=== PATIENT | male | born 1950 | race Caucasian/White ===

== ENCOUNTER 2019-08-02 17:24 | Emergency (ER) | payer MEDICARE, SELFPAY ==
[2019-08-02 17:25] VITALS: BP 117/63; PULSE 87; RESP 14; TEMP 36.3; O2SAT 96; BMI 25.4
--- NOTE | 2019-08-02 17:38 | EKG12_ITS ---
Test Reason : Blood Pressure : / mmHG Vent. Rate : 071 BPM Atrial Rate : 071 BPM P-R Int : 160 ms QRS Dur : 104 ms QT Int : 406 ms P-R-T Axes : 059 118 028 degrees QTc Int : 441 ms Normal sinus rhythm Right axis deviation Incomplete right bundle branch block Possible Right ventricular hypertrophy ST & T wave abnormality, consider anterolateral ischemia Abnormal ECG Confirmed by DORINDA BARRETO, NILO ([id number]), material expeditor ROXANA TABARES ([id number]) on 08/09/2019 11:12:30 AM Referred By: OLENA Confirmed By:JESSE SETH MD
--- NOTE | 2019-08-02 17:40 | ED.DCSUM_ITS ---
History of Present Illness Chief Complaint: Diarrhea Informant: Patient Onset: Today Narrative: Patient reports cold symptoms for the past couple days. He has had nausea and diarrhea today. This afternoon he was sitting in his recliner. He got very hot and sweaty. He felt he needed to go the bathroom. He woke up lying on the dining room floor. He denies injury from fall. He states he had had a bowel movement and not made it to the bathroom in time. - Past Medical History (1) Hx of appendectomy Status: Chronic (2) History of inguinal hernia repair Status: Chronic Past Medical History - Allergies and Home Meds Allergies/Adverse Reactions: Allergies No Known Allergies Allergy (Verified 08/02/19 17:25) Primary Care Physician: [facility] Doctor,Out of [NON-STAFF] - Prior records reviewed: Yes Surgical History: appendectomy, herniorrhaphy Lives: Spouse/ Significant Other Smoking Status: Never smoker Review of Systems General: Reports: Chills. Denies: Fever Eyes: Denies: Visual changes - bilaterally ENT: Denies: Bilateral ear pain Cardiovascular: Denies: Chest pain, Palpitations Respiratory: Reports: Cough. Denies: Dyspnea Gastrointestinal: Reports: Nausea, Diarrhea. Denies: Abdominal pain, Vomiting Genitourinary: Denies: Dysuria Musculoskeletal: Denies: Swelling, Extremity Pain Skin: Denies: Rash Neurological: Denies: Headache Allergy: Denies: Uticaria Physical Exam Vital Signs/Narrative: Vital Signs Temp Pulse Resp BP Pulse Ox 08/02/19 17:25 97.3 F L 87 14 117/63 96 Inital Vital Signs reviewed: Yes General: Well nourished, Well developed Head: Normocephalic ENT: Moist mucous membranes Neck: Supple Cardiovascular: Regular rate, Regular rhythm Respiratory: No distress, CTA bilaterally Abdomen: Soft, Nontender, Normal bowel sounds Skin: Normal color Neurological: Alert, Oriented x3 Psychological: Normal affect Diagnostic/Tx/Re-eval Laboratory Results 08/02/19 08/02/19 08/02/19 17:56 17:56 19:35 WBC 12.6 H RBC 5.41 Hgb 15.6 Hct 47.2 MCV 87.2 MCH 28.8 MCHC 33.1 RDW Std Deviation 41.7 RDW Coeff of Donnie 13.2 Plt Count 213 MPV 9.9 Immature Gran % (Auto) 0.400 Neut % (Auto) 88.0 H Lymph % (Auto) 4.9 L [place] % (Auto) 5.6 Eos % (Auto) 0.8 Baso % (Auto) 0.3 Absolute Neuts (auto) 11.1 H Absolute Lymphs (auto) 0.62 L Nucleated RBC % 0 Sodium 140 Potassium 3.5 Chloride 109 H Carbon Dioxide 25.0 Anion Gap 6 BUN 25 H Creatinine 1.37 H Estim Creat Clear Calc 52.54 Est GFR (MDRD) Af Amer 66 Est GFR (MDRD) Non-Af 55 L BUN/Creatinine Ratio 18.2 Glucose 113 H Calcium 9.1 Urine Color Yellow Urine Clarity Clear Urine pH 5.0 Ur Specific [place] 1.020 Urine Protein Negative Urine Glucose (UA) Normal Urine Ketones 5 H Urine Occult Blood Negative Urine Nitrite Negative Urine Bilirubin Negative Urine Urobilinogen Normal Ur Leukocyte Esterase Negative Urine RBC 0 SEEN Urine WBC 0 SEEN Ur Squamous Epith Cells 0 SEEN Urine Bacteria 0 SEEN Urine Mucus RARE - EKG Initial EKG Interpretation: Sinus Rhythm - Sinus at 71 with incomplete right bundle branch block. No acute ST change. - Medical Decision Making Patient was given IV fluids and Zofran here. Test results discussed with patient and at bedside. At this time his vital signs are stable. He was rehydrated with fluids. I believe his syncopal episode was secondary to a vasovagal reaction from his description. Patient is encouraged to increase fluids. He will be given some Zofran for home as needed. If he continues to have diarrhea after 24 hours I advised him he could take some Imodium. He was given signs to monitor for and return. ED Disposition - Plan for ED Patient: Disposition: Home or Assisted Living Diagnosis: Vasovagal syncope, Gastroenteritis Instructions: GASTROENTERITIS, Viral (6y-Adult), SYNCOPE, Vasovagal Prescriptions: Ondansetron [Zofran Odt] 4 mg PO Q8H PRN PRN #10 tab PRN Reason: Nausea Transmission Status: Pending to [facility]/pharmacy #[id number] Referrals: [facility] Doctor,Out of [NON-STAFF] -
[2019-08-02 18:03] LABS: Absolute Lymphocyte Count 0.62 X10^3/uL (0.83-4.51); Absolute Neutrophil Count 11.1 X10^3/uL (2.0-7.7); Basophil# 0.04 X10^3/uL; Basophil% 0.3 % (0-1); Eosinophils% 0.8 % (0-5); Hematocrit 47.2 % (40-54); Hemoglobin 15.6 g/dL (13.0-16.5); Lymphocyte # 0.62 X10^3/ul (4.0); Lymphocyte % 4.9 % (19-41); Mean Corp Hgb Conc 33.1 g/dL (32-36); Mean Corpuscular Hgb 28.8 pg (27.0-32.0); Mean Corpuscular Volume 87.2 fL (80-94); Mean Platelet Vol. 9.9 fl (6.2-12.0); Monocyte# 0.71 X10^3/uL; Monocyte% 5.6 % (0-10); NRBC Flagged by Analyzer 0 % (0-5); Neutrophil # 11.05 X10^3/uL (2.7-7.7); Platelet Count 213 K/mm3 (150-450); RBC Distribution Width CV 13.2 % (11.6-14.6); RBC Distribution Width SD 41.7 fl (35.1-43.9); Red Blood Count 5.41 M/mm3 (4.6-6.2); White Blood Count 12.6 K/mm3 (4.4-11.0)
[2019-08-02 18:15] LABS: Anion Gap 6 (5-15); BUN 25 mg/dL (7-18); BUN/Creat Ratio 18.2 RATIO (10-20); Calcium,Total 9.1 mg/dL (8.5-10.1); Chloride 109 mmol/L (98-107); Creatinine, Serum 1.37 mg/dL (0.70-1.30); EST Glomerular Filtration Rate 55 mL/min (>60); Est Glom Filt Rate - Afr Amer 66 mL/min (>60); Estimated Creatinine Clearance 52.54 ml/min; Glucose 113 mg/dL (74-106); Potassium 3.5 mmol/L (3.5-5.1); Sodium Level 140 mmol/L (136-145)
[2019-08-02] MEDS: 0.9% Normal Saline 1,000 ML 1000 ML IV (18:34)
[2019-08-02 18:36] VITALS: BP 125/62; PULSE 66; RESP 12; O2SAT 97
--- NOTE | 2019-08-02 18:40 | ED.RN ---
NO OLD EKGS IN MUSE
[2019-08-02] MEDS: 0.9% Normal Saline 1,000 ML 150 ML IV (19:03)
--- NOTE | 2019-08-02 19:25 | ED.RN ---
Called lab regarding urine sample, sample is not in lab. Nish and myself called to verify.
[2019-08-02 19:40] LABS: Bacteria 0 SEEN /hpf (None Seen); Red Blood Cells-Urine 0 SEEN /hpf (0-5); Squamous Epithelial Cells - UA 0 SEEN /hpf (0-5); White Blood Cells 0 SEEN /hpf (0-5)
[2019-08-02 19:46] LABS: Color, Urine Yellow (Yellow); Glucose, Dipstick Normal (Normal); Ketone-Dipstick 5 mg/dl (Negative); Leukocyte Esterase-Dipstick Negative /ul (Negative); Nitrite-Dipstick Negative (Negative); Occult Blood-Urine Negative /ul (Negative); Protein-Dipstick Negative (Negative); Urine Bilirubin Dipstick Negative (Negative); Urine Clarity Clear (Clear); Urine Urobilinogen Normal (Normal)
[2019-08-02 20:05] VITALS: BP 125/54; PULSE 71; RESP 17; O2SAT 96
[2019-08-02 20:08] LABS: Mucous, Urine RARE /hpf (<or=2+)
[2019-08-02 20:43] VITALS: BP 125/54; PULSE 71; RESP 17; O2SAT 96
== END 2019-08-02 20:44 | disposition home or self-care (01) ==
PROVIDERS: Emergency Provider Emergency Medicine; PCP Family Medicine
DX: K52.9 Noninfective gastroenteritis and colitis, unspecified (principal); R55 Syncope and collapse
CPT/HCPCS: 80048; 81001; 85025; 93005; 96360; 96361; 99284; J7030; A4216

== ENCOUNTER 2019-10-03 22:15 | Emergency (ER) | payer MEDICARE, SELFPAY ==
[2019-10-03 22:16] VITALS: PULSE 58; RESP 16; TEMP 36.8; O2SAT 96; BMI 25.0
[2019-10-03 22:25] VITALS: BP 164/80
--- NOTE | 2019-10-03 22:34 | CT_ITS ---
STUDY: CT ABDOMEN AND PELVIS WITHOUT CONTRAST REASON FOR EXAM: Male, 69 years old. LT FLANK AND GROIN PAIN/HX OF [place] RADIATION DOSAGE (If Supplied By Facility): CTDIvol = ( 6.79 ) mGy, DLP = ( 349.45 ) mGycm TECHNIQUE: Transaxial images were obtained from the dome of the diaphragm to the symphysis pubis without oral contrast, and without intravenous contrast. Sagittal and coronal images were reconstructed. Individualized dose optimization techniques were used for this CT. COMPARISON: None. FINDINGS: The visualized lung bases are unremarkable. The visualized portions of the heart are within normal limits. Normal liver. Normal gallbladder and extrahepatic biliary system. Normal spleen. Normal pancreas. Normal bilateral adrenal glands. Normal right kidney. 4 mm left ureteropelvic junction calculus with mild associated hydronephrosis. Normal visualized stomach. Anechoic artifact seen in the proximal duodenum. The remainder of the small bowel demonstrates no evidence for obstruction or other acute process. Normal colon. There is non-visualization of the appendix. Normal abdominal aorta. Normal inferior vena cava. Normal retroperitoneum. Normal urinary bladder. There is enlargement of the prostate gland. Normal abdominal wall. Normal osseous structures. CT/Abdomen/Pelvis without Cont IMPRESSION: 4 mm left ureteropelvic junction calculus with mild associated obstructive uropathy. Anechoic linear artifact seen in the proximal duodenum. Correlate with any intervention history. Electronically Signed: Massimo Cheney, at 23:13 EDT Tel , Service support ,
--- NOTE | 2019-10-03 22:35 | ED.VIS.GEN ---
History of Present Illness Chief Complaint: Back Narrative: 69-year-old male presents with sudden onset left flank pain that radiates anteriorly into his groin. He has nauseated but not vomiting. No hematuria or urinary hesitancy. No trauma. It started suddenly 2 hours ago. It is colicky in nature and severity. It feels similar to a kidney stone he had about 30 years ago. He denies any recent trauma. Severity is moderate. Capacity - Capacity Assessment Tool Can the patient make a choice & communicate that choice?: Yes Past Medical History - Allergies and Home Meds Allergies/Adverse Reactions: Allergies No Known Allergies Allergy (Verified 10/03/19 22:16) Primary Care Physician: Jaya Sue MD [Primary Care Provider] - Prior records reviewed: Yes Surgical History: appendectomy, herniorrhaphy Smoking Status: Never smoker Alcohol: None Review of Systems General: Denies: Chills, Fever, Sweats Eyes: Denies: Visual changes - bilaterally, Diplopia ENT: Denies: Rhinorrhea, Sore throat Cardiovascular: Denies: Chest pain, Palpitations Respiratory: Denies: Dyspnea, Cough, Dyspnea on exertion Gastrointestinal: Denies: Abdominal pain, Nausea, Vomiting, Diarrhea, Melena, Hematochezia Genitourinary: Reports: - - Flank pain. Denies: Dysuria, Hematuria, Frequency Musculoskeletal: Reports: Back pain. Denies: Extremity Pain Skin: Denies: Rash, Wounds Neurological: Denies: Headache, Weakness, Numbness Physical Exam Vital Signs/Narrative: Vital Signs Temp Pulse Resp BP Pulse Ox 10/03/19 22:25 164/80 H 10/03/19 22:16 98.2 F 58 L 16 96 General: Well nourished, Well developed, No Acute Distress Head: Normocephalic, Atraumatic Eyes: Perrl, EOMI ENT: Moist mucous membranes, No rhinorrhea Neck: Supple, Nontender Cardiovascular: Regular rate, Regular rhythm, No murmurs Respiratory: No distress, CTA bilaterally, Chest nontender Abdomen: Soft, Nondistended, Normal bowel sounds, Tender - left flank Back: Nontender, Normal Inspection Extremities: Nontender, No edema Skin: Normal color, No rash Neurological: Alert, Oriented x3, Cranial nerves II-XII grossly intact, Normal Strength, Normal Sensation Psychological: Normal affect, Normal Mood Diagnostic/Tx/Re-eval - Medical Decision Making CT scan reveals a 4 mm proximal left ureteral stone with hydronephrosis. Creatinine is 1.38 but other labs are within normal limits. No leukocytosis. He was given IV fluids, Toradol, Zofran. Pain is resolved on reexamination. He looks well. No evidence of an acute surgical abdomen. I told him about the elevated creatinine and the importance of close follow-up. He is comfortable going home at this time and following up with urology. He will return here if worse. ED Disposition - Plan for ED Patient: Disposition: Home or Assisted Living Diagnosis: Ureteral obstruction, left Instructions: ED Renal Stone w Colic Prescriptions: Tamsulosin HCl [Flomax] 0.4 mg PO DAILY #7 capsule Oxycodone HCl/Acetaminophen [Percocet 5/325] 1 tablet PO Q6H PRN PRN 3 Days #12 tablet PRN Reason: Pain Referrals: Kenny Mcelroy MD [STAFF PHYSICIAN] -
[2019-10-03 22:40] LABS: Absolute Lymphocyte Count 2.17 X10^3/uL (0.83-4.51); Absolute Neutrophil Count 2.8 X10^3/uL (2.0-7.7); Basophil# 0.03 X10^3/uL; Basophil% 0.5 % (0-1); Eosinophil# 0.15 X10^3/uL; Eosinophils% 2.5 % (0-5); Hematocrit 41.5 % (40-54); Hemoglobin 14.1 g/dL (13.0-16.5); Lymphocyte # 2.17 X10^3/ul (4.0); Mean Corpuscular Hgb 29.3 pg (27.0-32.0); Mean Corpuscular Volume 86.3 fL (80-94); Mean Platelet Vol. 10.3 fl (6.2-12.0); Monocyte# 0.85 X10^3/uL; Monocyte% 14.1 % (0-10); NRBC Flagged by Analyzer 0 % (0-5); Neutrophil # 2.82 X10^3/uL (2.7-7.7); Neutrophil % 46.7 % (47-70); Platelet Count 180 K/mm3 (150-450); RBC Distribution Width CV 13.2 % (11.6-14.6); RBC Distribution Width SD 41.2 fl (35.1-43.9); Red Blood Count 4.81 M/mm3 (4.6-6.2)
[2019-10-03] MEDS: 0.9% Normal Saline 1,000 ML 999 ML IV (22:40)
[2019-10-03 23:04] LABS: AST(SGOT) 14 U/L (15-37); Alanine Aminotransfer ALT/SGPT 21 U/L (16-61); Albumin, Serum 3.7 g/dL (3.2-5.0); Alkaline Phosphatase 68 U/L (45-117); Anion Gap 7 (5-15); BUN 25 mg/dL (7-18); BUN/Creat Ratio 18.1 RATIO (10-20); Calcium,Total 9.1 mg/dL (8.5-10.1); Chloride 110 mmol/L (98-107); Creatinine, Serum 1.38 mg/dL (0.70-1.30); EST Glomerular Filtration Rate 54 mL/min (>60); Est Glom Filt Rate - Afr Amer 66 mL/min (>60); Estimated Creatinine Clearance 52.16 ml/min; Globulin 2.9 g/dL (2.2-4.2); Glucose 135 mg/dL (74-106); Lipase 91 U/L (73-393); Potassium 3.5 mmol/L (3.5-5.1); Protein, Total 6.6 g/dL (6.4-8.2); Sodium Level 143 mmol/L (136-145)
[2019-10-03] MEDS: Ondansetron 4 MG/2 ML Vial IV (23:17)
[2019-10-03] MEDS: Ketorolac 15 MG/ML Vial 30 MG IV (23:17)
[2019-10-03 23:24] LABS: Bacteria 0 SEEN /hpf (None Seen); Mucous, Urine 0 SEEN /hpf (<or=2+); Squamous Epithelial Cells - UA 0 SEEN /hpf (0-5)
[2019-10-03 23:26] LABS: Glucose, Dipstick Normal (Normal); Ketone-Dipstick 5 mg/dl (Negative); Leukocyte Esterase-Dipstick 25 /ul (Negative); Nitrite-Dipstick Negative (Negative); Occult Blood-Urine 250 /ul (Negative); Protein-Dipstick 30 mg/dl (Negative); Specific Gravity, Urine 1.025 (1.002-1.030); Urine Bilirubin Dipstick Negative (Negative); Urine Urobilinogen Normal (Normal)
[2019-10-03 23:35] LABS: Color, Urine Yellow (Yellow); Urine Clarity Cloudy (Clear)
[2019-10-03 23:36] LABS: Red Blood Cells-Urine 50-100 SEEN /hpf (0-5); White Blood Cells 10-25 SEEN /hpf (0-5)
[2019-10-03 23:49] VITALS: BP 136/63; PULSE 67; RESP 15; O2SAT 95
== END 2019-10-04 00:33 | disposition home or self-care (01) ==
PROVIDERS: Emergency Provider Emergency Medicine; PCP Family Medicine
DX: N13.1 Hydronephrosis with ureteral stricture, not elsewhere classified (principal); Z87.442 Personal history of urinary calculi
CPT/HCPCS: 74176; 80048; 80076; 81001; 83690; 85025; 96361; 96374; 96375; 99283; J7030; A4216; J2405

== ENCOUNTER 2019-10-07 13:40 | Observation (INO) | payer MEDICARE, SELFPAY ==
[2019-10-07 13:42] VITALS: BP 129/87; PULSE 54; RESP 16; TEMP 36.7; O2SAT 98; BMI 24.9
[2019-10-07] MEDS: 0.9% Normal Saline 1,000 ML 999 ML IV (14:14)
[2019-10-07] MEDS: Morphine 4 MG/ML Syringe IV ×3 (14:16→20:33)
[2019-10-07] MEDS: Ondansetron 4 MG/2 ML Vial IV (14:16)
[2019-10-07 14:17] LABS: Absolute Lymphocyte Count 1.94 X10^3/uL (0.83-4.51); Absolute Neutrophil Count 2.9 X10^3/uL (2.0-7.7); Basophil# 0.02 X10^3/uL; Basophil% 0.3 % (0-1); Eosinophil# 0.12 X10^3/uL; Eosinophils% 2.1 % (0-5); Hematocrit 45.1 % (40-54); Hemoglobin 14.8 g/dL (13.0-16.5); Lymphocyte # 1.94 X10^3/ul (4.0); Lymphocyte % 33.9 % (19-41); Mean Corp Hgb Conc 32.8 g/dL (32-36); Mean Corpuscular Hgb 28.8 pg (27.0-32.0); Mean Corpuscular Volume 87.9 fL (80-94); Mean Platelet Vol. 10.4 fl (6.2-12.0); Monocyte# 0.77 X10^3/uL; Monocyte% 13.4 % (0-10); NRBC Flagged by Analyzer 0 % (0-5); Neutrophil # 2.86 X10^3/uL (2.7-7.7); Platelet Count 213 K/mm3 (150-450); RBC Distribution Width SD 41.6 fl (35.1-43.9); Red Blood Count 5.13 M/mm3 (4.6-6.2); White Blood Count 5.7 K/mm3 (4.4-11.0)
[2019-10-07 14:30] LABS: Anion Gap 6 (5-15); BUN 22 mg/dL (7-18); BUN/Creat Ratio 16.7 RATIO (10-20); Calcium,Total 9.1 mg/dL (8.5-10.1); Chloride 108 mmol/L (98-107); Creatinine, Serum 1.32 mg/dL (0.70-1.30); EST Glomerular Filtration Rate 57 mL/min (>60); Est Glom Filt Rate - Afr Amer 69 mL/min (>60); Estimated Creatinine Clearance 54.53 ml/min; Glucose 139 mg/dL (74-106); Potassium 3.5 mmol/L (3.5-5.1); Sodium Level 141 mmol/L (136-145)
--- NOTE | 2019-10-07 15:36 | ED.VIS.GEN ---
History of Present Illness Chief Complaint: Flank Pain Informant: Patient Onset: Today Context: Sudden Onset Timing: Intermittent Narrative: Patient is a 69-year-old male who was recently diagnosed with a left-sided 4 mm kidney stone presenting with recurrent left flank pain. Patient describes the pain as sharp and constant for the past hour. It radiates into his left lower quadrant. Patient states he felt better when he was discharged home on Friday. On Friday he felt fine and on Friday he had a small 10-minute episode of pain however he took his Percocet and that helped. On Friday he was feeling fine again however today his pain is significantly worse than ever was before. He did take 1 Percocet prior to arrival but did not have any relief. He has associated nausea and vomiting which is a new symptom. He did not follow-up with urology because he thought that he needed to wait until he passed the stone to call them. Patient denies any other medical history. He denies any difficulty urinating. He states he is otherwise been feeling well. He denies any other complaints at this time. Past Medical History - Allergies and Home Meds Allergies/Adverse Reactions: Allergies No Known Allergies Allergy (Verified 10/07/19 13:41) Primary Care Physician: Jaya Sue MD [Primary Care Provider] - Past Medical History: None Surgical History: appendectomy, herniorrhaphy Smoking Status: Former smoker Review of Systems General: Denies: Chills, Fever, Sweats Eyes: Denies: Visual changes - bilaterally, Diplopia ENT: Denies: Rhinorrhea, Sore throat Cardiovascular: Denies: Chest pain, Palpitations Respiratory: Denies: Dyspnea, Cough, Dyspnea on exertion Gastrointestinal: Reports: Abdominal pain - Left flank pain, Nausea, Vomiting. Denies: Diarrhea, Melena, Hematochezia Genitourinary: Denies: Dysuria, Hematuria, Frequency Musculoskeletal: Denies: Back pain, Extremity Pain Skin: Denies: Rash, Wounds Neurological: Denies: Headache, Weakness, Numbness Physical Exam Vital Signs/Narrative: Vital Signs Temp Pulse Resp BP Pulse Ox 10/07/19 13:42 98.1 F 54 L 16 129/87 H 98 Inital Vital Signs reviewed: Yes General: Well nourished, Well developed, Acute Distress - Secondary to pain Head: Normocephalic, Atraumatic Eyes: Perrl, EOMI ENT: Moist mucous membranes, No rhinorrhea Neck: Supple, Nontender Cardiovascular: Regular rate, Regular rhythm, No murmurs Respiratory: No distress, CTA bilaterally, Chest nontender Abdomen: Soft, Nontender, Nondistended, Normal bowel sounds, Guarding - Voluntary . Negative for: Rebound tenderness Back: Nontender, Normal Inspection. Negative for: CVA tenderness, Spinal tenderness Extremities: Nontender, No edema Skin: Normal color, No rash Neurological: Alert, Oriented x3, Cranial nerves II-XII grossly intact, Normal Strength, Normal Sensation Psychological: Normal affect, Normal Mood Diagnostic/Tx/Re-eval - Medical Decision Making Patient was evaluated for recurrent left-sided flank pain. He was diagnosed with a 4 mm stone 4 days ago. It is initially treated with 4 of morphine, 4 of Zofran and IV fluids. Patient does not have adequate pain control and is given another 4 mg of morphine. On reevaluation he is more comfortable. As patient did have an elevated creatinine with unknown baseline I did recheck CBC, BMP and urinalysis. Patient's creatinine has not changed and he is not have a leukocytosis. We will obtain a KUB for visualization of the stone. I am still waiting on the urinalysis to make sure he does not have a contaminant infection. Patient is signed out to oncoming physician, Dr. Ochoa. Should patient receive adequate pain control and his work-up continues to be normal believe he can follow-up with follow-up with Dr. Mcelroy. Should he have intractable pain or signs of infection, patient will require admission. ED Disposition - Plan for ED Patient: Diagnosis: Renal colic on left side Referrals: Jaya Sue MD [Primary Care Provider] -
[2019-10-07] MEDS: Ketorolac 15 MG/ML Vial IV (16:30)
[2019-10-07] MEDS: HYDROmorphone 0.5 MG/0.5 ML SYRINGE IV (16:30)
[2019-10-07 16:32] VITALS: BP 175/68; PULSE 63; RESP 16; O2SAT 95
--- NOTE | 2019-10-07 16:55 | RAD_ITS ---
STUDY: X-RAY - ABDOMEN/PELVIS REASON FOR EXAM: Male, 69 years old. Pt arrives to ed with left flank pain. Recent diagnosis of left side stone with colic. Has not followed up with Urology. TECHNIQUE: Two AP supine views of the abdomen and pelvis. COMPARISON: Noncontrast CT abdomen and pelvis October 03, 2019. FINDINGS: Non-visualized lung bases. There is an unremarkable bowel gas pattern. There is no demonstrated free abdominal air. The visualized liver, spleen and kidneys are grossly normal in size and morphology. There are calcified phleboliths in the pelvis. Number of metal fixation coils consistent with prior herniorrhaphy project over the left lower quadrant/inguinal region. There are stable multilevel degenerative changes and 15 degree levoscoliosis of the visualized lumbar spine. RAD/Abdomen Single View IMPRESSION: 1. Nonspecific bowel gas pattern. 2. The punctate bilateral renal stones seen on previous CT are not evident on this exam. 3. Prior left lower quadrant/inguinal herniorrhaphy. 4. Stable degenerative changes of the spine. Electronically Signed: Luke Yadav MD at 17:22 EDT , Service support ,
[2019-10-07 17:06] LABS: Bacteria 0 SEEN /hpf (None Seen)
[2019-10-07 17:12] LABS: Color, Urine Yellow (Yellow); Glucose, Dipstick Normal (Normal); Ketone-Dipstick 5 mg/dl (Negative); Leukocyte Esterase-Dipstick 25 /ul (Negative); Nitrite-Dipstick Negative (Negative); Occult Blood-Urine 250 /ul (Negative); Protein-Dipstick 30 mg/dl (Negative); Specific Gravity, Urine 1.025 (1.002-1.030); Urine Bilirubin Dipstick Negative (Negative); Urine Clarity Sl. Cloudy (Clear); Urine Urobilinogen Normal (Normal)
[2019-10-07 17:39] LABS: Hyaline Cast 0-5 SEEN /lpf (0-5); Mucous, Urine 3+ /hpf (<or=2+)
[2019-10-07 17:40] LABS: Red Blood Cells-Urine 50-100 SEEN /hpf (0-5)
[2019-10-07 17:41] LABS: White Blood Cells 0-5 SEEN /hpf (0-5)
[2019-10-07 17:42] LABS: Calcium Oxalate Crystals Ur RARE /hpf (<or=2+); Squamous Epithelial Cells - UA 0-5 SEEN /hpf (0-5)
--- NOTE | 2019-10-07 18:25 | ED.VISSUMM ---
- ER Visit Summary Date of Service: 10/07/19 Chief Complaint: Addendum to initial dictation by Dr. Ferrara [] History of Present Illness: The patient is a 69 M [presented with left flank pain related to a 4 mm kidney stone diagnosed 4 days ago. Patient was medicated with morphine initially and pain did not improve he was then given Toradol and Dilaudid which did help his pain. I was asked to follow-up on his urinalysis and KUB. The KUB did not show any evidence of a stone. The urinalysis showed microscopic blood but no signs of infection. Patient is resting relatively comfortable at this time.] Physical Examination: [] Test Results: [] Emergency Department Course and Treatment: [] Treatment Plan: [After discussing with patient results he is asking that we admit him as he is concerned about going home and having the same pain again. I discussed case with urology and they be happy to see him in consultation however they asked that medicine admit for pain control] Disposition: Admit [] Impression: [Kidney stone with colic Intractable pain] This note was generated with [employer] dictation software. It may contain incorrect words, spelling, and punctuation that were not noted in review of the chart prior to signing ED Disposition - Plan for ED Patient: Diagnosis: Renal colic on left side Referrals: Jaya Sue MD [Primary Care Provider] -
--- NOTE | 2019-10-07 18:28 | HP.PCM_ITS ---
History of Present Illness Date of Admission: 10/07/19 Chief Complaint: abdominal pain The patient is a 69 year old M with no significant past medical history was admitted through the ED on 10/07/2019 with a complaint of left-sided abdominal pain. Patient was seen in the ED about 4 days prior to this admission after he complained of similar symptoms and imaging done showed evidence of a 4 mm kidney stone in the ureter. He was discharged home with pain meds again today. He therefore decided to come into the hospital because he could not tolerate the pain. He last had kidney stones about 30 years ago. He denied any fever or chills, but admitted to nausea and vomiting. He denied any burning with urin ation. Review of symptoms otherwise negative. On admission vitals were significant for blood pressure of 175/68, with temperature of 98.1 and pulse rate of 63 and respiratory of 16. Pulse ox was 95% on room air. Chemistry showed creatinine of 1.32 with potassium of 3.5. CBC was unremarkable. KUB showed nonspecific bowel gas pattern with punctate bilateral renal stones seen on previous CT not been evident on this exam) left lower quadrant inguinal herniorrhaphy. He has been admitted to be managed for abdominal pain due to nephrolithiasis. [] Past Medical History Past Medical History (Chronic Problems): Chronic Problems Hx of appendectomy (Chronic) History of inguinal hernia repair (Chronic) Allergies No Known Allergies Allergy (Verified 10/07/19 13:41) Home Medications: Ambulatory Orders Medication Instructions Recorded Ondansetron [Zofran Odt] 4 mg PO Q8H PRN PRN #10 tab 08/02/19 Tamsulosin HCl [Flomax] 0.4 mg PO DAILY #7 cap 10/03/19 Surgical History: appendectomy, herniorrhaphy Lives: Spouse/ Significant Other Smoking Status: Former smoker Alcohol: None Drugs: None - *Family History Maternal History Items: No pertinent history Paternal History Items: No pertinent history Review of Systems Constitutional: Denies: Chills, Fever, Malaise, Weakness, Weight Change Eyes: Denies: Blurred vision HEENT: Denies: Head Aches, Sinus Congestion, Sinus Drainage Cardiovascular: Denies: Chest Pain, Palpitations Respiratory: Denies: Cough, Shortness of Breath, Shortness of breath at rest, Shortness of breath upon exertion, Sputum production Gastrointestinal: Reports: Abdominal Pain, Nausea, Vomiting Genitourinary: Denies: Dysuria, Frequency, Hematuria, Hesitancy, Urgency Musculoskeletal: Denies: Joint Pain, Joint Tenderness Skin: Denies: Rash, Wounds Neurological: Denies: Numbness, Tingling, Focal weakness Psychiatric: Denies: Anxiety, Depression, Homicidal Ideations, Suicidal Ideations Hematologic/ Lymphatic: Denies: Easy Bruising, Easy Bleeding VTE Information - Inpt Only VTE Present on Admission: No VTE Pharm Prophylaxis ordered?: Yes Patient Problems: Active and Suspected Problems Renal colic on left side (Acute) - Physical Exam Vitals/I&O's: Vital Signs Temp Pulse Resp BP Pulse Ox 98.1 F 63 16 175/68 H 95 10/07/19 13:42 10/07/19 16:32 10/07/19 16:32 10/07/19 16:32 10/07/19 16:32 Oxygen Delivery Method Room Air Weight: 173 lb 11.588 oz Body Mass Index (BMI) 24.9 Intake and Output for Last 24 Hours 10/05/19 10/06/19 10/07/19 23:59 23:59 23:59 Intake Total 1000 / 1000 Balance 1000 / 1000 General: Alert, Oriented x3, Cooperative, No apparent distress HEENT: Atraumatic, PERRLA, EOMI, Normocephalic Oral: Moist Mucosa Neck: Supple, No JVD, Negative Carotid Bruits Lungs: Clear to auscultation, Normal air movement, No rhonchi, No wheeze, No rales Cardiovascular: Regular rate, Regular Rhythm, Normal S1, Normal S2, No murmurs Abdomen: Bowel Sounds Present, Soft, Non Tender, Non-Distended, No Hepato- splenomegaly Extremities: No clubbing, No cyanosis, No edema, Capillary Refill Less than 3 Seconds Skin: No rashes, No breakdown Musculoskeletal: No Tenderness to Palpation of Joints or Extremities Lymphatic: No Cervical, Supraclavicular, or Inguinal Adenopathy Neurological: Cranial nerves II-XII grossly intact, Neuro grossly intact, Motor Exam 5/5 strength throughout Psych/Mental Status: Normal Affect, Appropriate, Alert and oriented to time, place, person, mood and affect Laboratory Results 10/07/19 14:06: WBC 5.7, RBC 5.13, Hgb 14.8, Hct 45.1, MCV 87.9, MCH 28.8, MCHC 32.8, RDW Std Deviation 41.6, RDW Coeff of Donnie 13.0, Plt Count 213, MPV 10.4, Immature Gran % (Auto) 0.300, Neut % (Auto) 50.0, Lymph % (Auto) 33.9, [place] % (Auto) 13.4 H, Eos % (Auto) 2.1, Baso % (Auto) 0.3, Absolute Neuts (auto) 2.9, Absolute Lymphs (auto) 1.94, Nucleated RBC % 0 10/07/19 14:06: Sodium 141, Potassium 3.5, Chloride 108 H, Carbon Dioxide 27.0, Anion Gap 6, BUN 22 H, Creatinine 1.32 H, Estim Creat Clear Calc 54.53, Est GFR (MDRD) Af Amer 69, Est GFR (MDRD) Non-Af 57 L, BUN/Creatinine Ratio 16.7, Glucose 139 H, Calcium 9.1 10/07/19 17:00: Urine Color Yellow, Urine Clarity Sl. Cloudy, Urine pH 6.0, Ur Specific [place] 1.025, Urine Protein 30 H, Urine Glucose (UA) Normal, Urine Ketones 5 H, Urine Occult Blood 250 H, Urine Nitrite Negative, Urine Bilirubin Negative, Urine Urobilinogen Normal, Ur Leukocyte Esterase 25 H, Urine RBC 50- 100 SEEN, Urine WBC 0-5 SEEN, Ur Squamous Epith Cells 0-5 SEEN, Calcium Oxalate Crystal RARE, Urine Bacteria 0 SEEN, Hyaline Casts 0-5 SEEN, Urine Mucus 3+ Diagnostic Data KUB X-Ray 10/07/19 16:55 IMPRESSION: 1. Nonspecific bowel gas pattern. 2. The punctate bilateral renal stones seen on previous CT are not evident on this exam. 3. Prior left lower quadrant/inguinal herniorrhaphy. 4. Stable degenerative changes of the spine. Electronically Signed: Luke Yadav MD at 17:22 EDT , Service support , Assessment/Plan All Active Problems Renal colic on left side (Acute) 69 y/o admitted with a complaint of left sided abdominal pain. 1. NEphrolithiasis * , Pain had improved with pain meds. * AB done showed that the bilateral renal stones seen on previous CT were not evident on the x-ray. Stones therefore may have likely passed * Patient however not comfortable going home because he is concerned about the pain. * Admit to MedSurg. * Hydrate with IV fluid normal saline at 150 cc/h. * IV Toradol and IV morphine for pain control as well as p.o. Tylenol. * P.o. Flomax. * If pain is persistent, will consult urology tomorrow. * 2. CKD stage III: Creatinine is 1.32 which is around his baseline of 1.37 from July 2018. Labile. Will monitor. 3. Elevated blood pressure: * No known diagnosis of hypertension. * Blood pressure was in the 170s systolic on admission and this likely due to pain. * IV hydralazine PRN. * If blood pressure remains elevated, will consider starting oral blood pressure medications. * * DVT prophylaxis; SCDs Code status: Full code * Patient counseled extensively about different types of CODE STATUS including full code, DNR CCA and DNR CCA. Patient elects to be full code. Total [id number] time 16 minutes. OBSV E&M: 46240 Initial observation care L2 Procedures: 56370 Advncd Care Plan 30 Min
[2019-10-07 18:59] VITALS: BP 175/68; PULSE 63; RESP 17; TEMP 36.7
[2019-10-07 19:34] VITALS: BMI 24.3
[2019-10-07 19:40] VITALS: BP 151/64; PULSE 63; RESP 16; TEMP 36.8; O2SAT 98
[2019-10-07 19:54] VITALS: BMI 24.4
[2019-10-07] MEDS: 0.9% Normal Saline 1,000 ML 150 ML IV (20:05)
[2019-10-07] MEDS: 0.9% Saline Lock 10 ML Syringe IV (20:33)
[2019-10-07] MEDS: oxyCODONE 5 MG Tablet PO (22:01)
[2019-10-08] MEDS: 0.9% Saline Lock 10 ML Syringe IV (01:10)
[2019-10-08] MEDS: Ketorolac 30 MG/ML Syringe IV (01:10)
[2019-10-08 01:16] VITALS: BP 172/79; PULSE 60; RESP 18; TEMP 37.1; O2SAT 98
[2019-10-08 02:00] VITALS: BP 147/77; PULSE 62; RESP 16
[2019-10-08] MEDS: 0.9% Normal Saline 1,000 ML 150 ML IV ×2 (02:54→10:17)
--- NOTE | 2019-10-08 04:42 | NURSING ---
report given to SOPHIA Aviles
--- NOTE | 2019-10-08 07:25 | CON.PCM_ITS ---
Problem List (1) Renal colic on left side Status: Acute Reason for Consult Date of Consultation: 10/07/19 Reason for Consultation: Left proximal ureteral calculi History of Present Illness: The patient is a 69 year old male who presented to the emergency room with left- sided severe flank pain, the emergency room and call me for consult call me reviewed the CAT scan and she had he has a stone 4 mm in the proximal left ureter, he was admitted for pain control because he was concerned that the pain may came back. We will see if he can pass the stone spontaneously. I reviewed the KUB look like the stone to move down to the distal ureter near the bladder. Past Medical History Past Medical History (Chronic Problems): Chronic Problems Hx of appendectomy (Chronic) History of inguinal hernia repair (Chronic) Allergies No Known Allergies Allergy (Verified 10/07/19 13:41) Home Medications: Ambulatory Orders Medication Instructions Recorded Ondansetron [Zofran Odt] 4 mg PO Q8H PRN PRN #10 tab 08/02/19 Tamsulosin HCl [Flomax] 0.4 mg PO DAILY #7 cap 10/03/19 Oxycodone HCl/Acetaminophen 1 tab PO Q6H PRN PRN 10/07/19 [Endocet 5-325 Tablet] Surgical History: appendectomy, herniorrhaphy Lives: Spouse/ Significant Other Smoking Status: Former smoker Tobacco Use: Cigarettes Alcohol: None Drugs: None - *Family History Maternal History Items: No pertinent history Paternal History Items: No pertinent history Review of Systems Constitutional: Denies: Chills, Fever, Weight Change HEENT: Denies: Head Aches, Sinus Congestion, Sinus Drainage Cardiovascular: Denies: Chest Pain, Palpitations Respiratory: Denies: Cough, Shortness of breath at rest, Sputum production Gastrointestinal: Denies: Abdominal Pain, Nausea, Vomiting Genitourinary: Denies: Dysuria Musculoskeletal: Denies: Joint Pain, Joint Tenderness Skin: Denies: Rash, Wounds Neurological: Denies: Numbness, Tingling, Focal weakness Psychiatric: Denies: Anxiety, Depression, Homicidal Ideations, Suicidal Ideations Hematologic/ Lymphatic: Denies: Easy Bruising, Easy Bleeding Physical Exam - Physical Exam Vital Signs Temp 98.7 F 10/08/19 01:16 Pulse 62 10/08/19 02:00 Resp 16 10/08/19 02:00 BP 147/77 H 10/08/19 02:00 Pulse Ox 98 10/08/19 01:16 Intake & Output 10/06/19 10/07/19 10/08/19 23:59 23:59 23:59 Intake Total 1000 / 1344 1344 / 1344 Output Total 350 / 350 Balance 1000 / 1144 994 / 994 Weight: 77.1 kg Intake: Oral 344 / 344 Intake, IV Amount 1000 / 1000 1000 / 1000 0.9% Normal Saline 1,000 ML @ 1000 / 1000 150 mls/hr IV .Q6H40M [facility] Rx#: [id number] 0.9% Normal Saline 1,000 ML @ 1000 / 1000 999 mls/hr IV .Q1H1M [facility] Rx#: [id number] Output: Urine 350 / 350 General: Alert HEENT: Atraumatic Oral: Moist Mucosa Neck: Supple Lungs: Normal air movement Cardiovascular: Regular rate Abdomen: Soft Laboratory Tests Past 24 Hrs 10/07/19 10/07/19 10/07/19 14:06 14:06 17:00 WBC 5.7 RBC 5.13 Hgb 14.8 Hct 45.1 MCV 87.9 MCH 28.8 MCHC 32.8 RDW Std Deviation 41.6 RDW Coeff of Donnie 13.0 Plt Count 213 MPV 10.4 Immature Gran % (Auto) 0.300 Neut % (Auto) 50.0 Lymph % (Auto) 33.9 [place] % (Auto) 13.4 H Eos % (Auto) 2.1 Baso % (Auto) 0.3 Absolute Neuts (auto) 2.9 Absolute Lymphs (auto) 1.94 Nucleated RBC % 0 Sodium 141 Potassium 3.5 Chloride 108 H Carbon Dioxide 27.0 Anion Gap 6 BUN 22 H Creatinine 1.32 H Estim Creat Clear Calc 54.53 Est GFR (MDRD) Af Amer 69 Est GFR (MDRD) Non-Af 57 L BUN/Creatinine Ratio 16.7 Glucose 139 H Calcium 9.1 Urine Color Yellow Urine Clarity Sl. Cloudy Urine pH 6.0 Ur Specific [place] 1.025 Urine Protein 30 H Urine Glucose (UA) Normal Urine Ketones 5 H Urine Occult Blood 250 H Urine Nitrite Negative Urine Bilirubin Negative Urine Urobilinogen Normal Ur Leukocyte Esterase 25 H Urine RBC 50-100 SEEN Urine WBC 0-5 SEEN Ur Squamous Epith Cells 0-5 SEEN Calcium Oxalate Crystal RARE Urine Bacteria 0 SEEN Hyaline Casts 0-5 SEEN Urine Mucus 3+ Assessment/Plan All Active Problems Renal colic on left side (Acute) 69-year-old male admitted for small kidney stone 4 mm in size possibly may pass on his own will continue with hydration, KUB was reviewed stone second in the distal ureter at this point do not plan for intervention unless he fails a Pass the stone will continue to follow while in the hospital.
[2019-10-08 07:43] LABS: Absolute Lymphocyte Count 1.93 X10^3/uL (0.83-4.51); Absolute Neutrophil Count 5.8 X10^3/uL (2.0-7.7); Basophil# 0.02 X10^3/uL; Basophil% 0.2 % (0-1); Eosinophil# 0.11 X10^3/uL; Eosinophils% 1.2 % (0-5); Hematocrit 41.7 % (40-54); Hemoglobin 13.3 g/dL (13.0-16.5); Lymphocyte # 1.93 X10^3/ul (4.0); Lymphocyte % 21.9 % (19-41); Mean Corp Hgb Conc 31.9 g/dL (32-36); Mean Corpuscular Hgb 28.5 pg (27.0-32.0); Mean Corpuscular Volume 89.5 fL (80-94); Mean Platelet Vol. 10.3 fl (6.2-12.0); Monocyte# 0.97 X10^3/uL; NRBC Flagged by Analyzer 0 % (0-5); Neutrophil # 5.76 X10^3/uL (2.7-7.7); Neutrophil % 65.4 % (47-70); Platelet Count 182 K/mm3 (150-450); RBC Distribution Width CV 13.2 % (11.6-14.6); RBC Distribution Width SD 43.1 fl (35.1-43.9); Red Blood Count 4.66 M/mm3 (4.6-6.2); White Blood Count 8.8 K/mm3 (4.4-11.0)
[2019-10-08 08:13] LABS: Anion Gap 5 (5-15); BUN 22 mg/dL (7-18); BUN/Creat Ratio 12.5 RATIO (10-20); Calcium,Total 8.4 mg/dL (8.5-10.1); Chloride 109 mmol/L (98-107); Creatinine, Serum 1.76 mg/dL (0.70-1.30); EST Glomerular Filtration Rate 41 mL/min (>60); Est Glom Filt Rate - Afr Amer 50 mL/min (>60); Glucose 95 mg/dL (74-106); Potassium 3.7 mmol/L (3.5-5.1); Sodium Level 141 mmol/L (136-145)
[2019-10-08] MEDS: Tamsulosin HCl 0.4 MG Capsule PO (08:21)
[2019-10-08 08:22] VITALS: BP 126/58; PULSE 55; RESP 18; TEMP 37.1; O2SAT 98
--- NOTE | 2019-10-08 10:32 | PN_ITS ---
Patient Problems: Active and Suspected Problems Renal colic on left side (Acute) Subjective: Patient seen and examined. He says he had a rough night on account of abdominal pain. Pain was a bit better this morning but still present on the left side. He denied fever chills, nausea vomiting or diarrhea. Review of symptoms other galeana negative. Labs and vitals reviewed. Prealbumin is up to 1.76 today. He has remained hemodynamically stable. Vitals/I&O's: Vital Signs Temp Pulse Resp BP Pulse Ox 98.7 F 55 L 18 126/58 H 98 10/08/19 08:22 10/08/19 08:22 10/08/19 08:22 10/08/19 08:22 10/08/19 08:22 Oxygen Delivery Method Room Air Weight: 169 lb 15.622 oz Body Mass Index (BMI) 24.3 Intake and Output for Last 24 Hours 10/06/19 10/07/19 10/08/19 23:59 23:59 23:59 Intake Total 1000 / 1344 2544 / 2544 Output Total 450 / 450 Balance 1000 / 1144 2093 / 2093 General: Alert, Oriented x3, Cooperative, No apparent distress HEENT: Atraumatic, PERRLA, EOMI, Normocephalic Oral: Moist Mucosa Neck: Supple, No JVD, Negative Carotid Bruits Lungs: Clear to auscultation, Normal air movement, No rhonchi, No wheeze, No rales Cardiovascular: Regular rate, Regular Rhythm, Normal S1, Normal S2, No murmurs Abdomen: Bowel Sounds Present, Soft, Non Tender, Non-Distended, No Hepato- splenomegaly Extremities: No clubbing, No cyanosis, No edema, Capillary Refill Less than 3 Seconds Skin: No rashes, No breakdown Musculoskeletal: No Tenderness to Palpation of Joints or Extremities Lymphatic: No Cervical, Supraclavicular, or Inguinal Adenopathy Neurological: Cranial nerves II-XII grossly intact, Neuro grossly intact, Motor Exam 5/5 strength throughout Psych/Mental Status: Normal Affect, Appropriate, Alert and oriented to time, place, person, mood and affect Laboratory Results 10/07/19 14:06: WBC 5.7, RBC 5.13, Hgb 14.8, Hct 45.1, MCV 87.9, MCH 28.8, MCHC 32.8, RDW Std Deviation 41.6, RDW Coeff of Donnie 13.0, Plt Count 213, MPV 10.4, Immature Gran % (Auto) 0.300, Neut % (Auto) 50.0, Lymph % (Auto) 33.9, [place] % (Auto) 13.4 H, Eos % (Auto) 2.1, Baso % (Auto) 0.3, Absolute Neuts (auto) 2.9, Absolute Lymphs (auto) 1.94, Nucleated RBC % 0 10/07/19 14:06: Sodium 141, Potassium 3.5, Chloride 108 H, Carbon Dioxide 27.0, Anion Gap 6, BUN 22 H, Creatinine 1.32 H, Estim Creat Clear Calc 54.53, Est GFR (MDRD) Af Amer 69, Est GFR (MDRD) Non-Af 57 L, BUN/Creatinine Ratio 16.7, Glu cose 139 H, Calcium 9.1 10/07/19 17:00: Urine Color Yellow, Urine Clarity Sl. Cloudy, Urine pH 6.0, Ur Specific [place] 1.025, Urine Protein 30 H, Urine Glucose (UA) Normal, Urine Ketones 5 H, Urine Occult Blood 250 H, Urine Nitrite Negative, Urine Bilirubin Negative, Urine Urobilinogen Normal, Ur Leukocyte Esterase 25 H, Urine RBC 50- 100 SEEN, Urine WBC 0-5 SEEN, Ur Squamous Epith Cells 0-5 SEEN, Calcium Oxalate Crystal RARE, Urine Bacteria 0 SEEN, Hyaline Casts 0-5 SEEN, Urine Mucus 3+ 10/08/19 07:21: Sodium 141, Potassium 3.7, Chloride 109 H, Carbon Dioxide 27.0, Anion Gap 5, BUN 22 H, Creatinine 1.76 H, Estim Creat Clear Calc 40.90, Est GFR (MDRD) Af Amer 50 L, Est GFR (MDRD) Non-Af 41 L, BUN/Creatinine Ratio 12.5, Glucose 95, Calcium 8.4 L 10/08/19 07:21: WBC 8.8, RBC 4.66, Hgb 13.3, Hct 41.7, MCV 89.5, MCH 28.5, MCHC 31.9 L, RDW Std Deviation 43.1, RDW Coeff of Donnie 13.2, Plt Count 182, MPV 10.3, Immature Gran % (Auto) 0.300, Neut % (Auto) 65.4, Lymph % (Auto) 21.9, [place] % (Auto) 11.0 H, Eos % (Auto) 1.2, Baso % (Auto) 0.2, Absolute Neuts (auto) 5.8, Absolute Lymphs (auto) 1.93, Nucleated RBC % 0 Diagnostic Data KUB X-Ray 10/07/19 16:55 IMPRESSION: 1. Nonspecific bowel gas pattern. 2. The punctate bilateral renal stones seen on previous CT are not evident on this exam. 3. Prior left lower quadrant/inguinal herniorrhaphy. 4. Stable degenerative changes of the spine. Electronically Signed: Luke Yadav MD at 17:22 EDT , Service support , Current Medications Dextrose (D50w Syringe) 0 gm IV X1 PRN; Protocol PRN Reason: Hypoglycemia Glucagon () 1 mg IM .X1 PRN PRN Reason: Hypoglycemia Sodium Chloride () 1,000 mls @ 150 mls/hr IV .Q6H40M [facility] Stop: 10/08/19 15:29 Last Admin: 10/08/19 10:17 Dose: 150 mls/hr Documented by: Ketorolac Tromethamine (Toradol (Bkc)) 30 mg IV Q8H PRN PRN PRN Reason: Pain Score 1-10/10 Stop: 10/12/19 19:31 Last Admin: 10/08/19 01:10 Dose: 30 mg Documented by: Morphine Sulfate () 4 mg IV Q3H PRN PRN PRN Reason: Pain Score 6-10/10 Last Admin: 10/07/19 20:33 Dose: 4 mg Documented by: Nutritional Formula (Lactose Free) (Ensure Enlive) 120 ml PO 4X/DAY [facility] Last Admin: 10/08/19 08:21 Dose: 120 ml Documented by: Ondansetron HCl (Zofran) 4 mg IV Q8H PRN PRN PRN Reason: NAUSEA/VOMITING Oxycodone HCl (Oxyir) 5 mg PO Q6H PRN PRN PRN Reason: PAIN 1-10/10 Last Admin: 10/07/19 22:01 Dose: 5 mg Documented by: Sodium Chloride () 10 - 40 ml IV UD PRN PRN Reason: SALINE FLUSH Last Admin: 10/08/19 01:10 Dose: 10 ml Documented by: Tamsulosin HCl (Flomax) 0.4 mg PO DAILY EDDIE Last Admin: 10/08/19 08:21 Dose: 0.4 mg Documented by: STROKE Vital Signs/Narrative: Vital Signs Temp Pulse Resp BP Pulse Ox 10/08/19 08:22 98.7 F 55 L 18 126/58 H 98 Medical Necessity - Tobacco Use Smoking Status: Former smoker Tobacco Use: Cigarettes Assessment/Plan All Active Problems Renal colic on left side (Acute) 69 y/o admitted with a complaint of left sided abdominal pain. 1. NEphrolithiasis * patient still having some pain * on IV morphine, ketorolac and tylenol for pain * also on flomax * urology on board; per urology notes, pain is now in distal left ureter; will continue with conservative management for now. * 2. HAM on CKD 3: Cr today is 1./76, with baseline of 1.38. Hydrate with IVF and monitor 3. Elevated blood pressure: * BP now down to 120s systolic, with improvement in pain control * will monitor * DVT prophylaxis; SCDs Code status: Full code * Inpatient E&M: 45521 Subs Hosp L2
[2019-10-08 14:17] VITALS: BP 135/60; PULSE 54; RESP 18; TEMP 36.8; O2SAT 99
--- NOTE | 2019-10-08 16:38 | CASEMGMT ---
SOPHIA CM in to explain HARDIN form to patient. Patient voiced understanding, no questions or concerns at this time. Patient signed HARDIN form. Original filed on chart. Copy provided to patient.
[2019-10-08 19:49] VITALS: BP 123/62; PULSE 55; RESP 16; TEMP 37.1; O2SAT 100
[2019-10-09 02:51] VITALS: BP 117/64; PULSE 52; RESP 16; TEMP 37; O2SAT 95
[2019-10-09 06:44] LABS: Absolute Lymphocyte Count 2.01 X10^3/uL (0.83-4.51); Absolute Neutrophil Count 3.1 X10^3/uL (2.0-7.7); Basophil# 0.03 X10^3/uL; Basophil% 0.5 % (0-1); Eosinophil# 0.22 X10^3/uL; Eosinophils% 3.6 % (0-5); Hematocrit 38.3 % (40-54); Hemoglobin 12.6 g/dL (13.0-16.5); Lymphocyte # 2.01 X10^3/ul (4.0); Lymphocyte % 33.1 % (19-41); Mean Corp Hgb Conc 32.9 g/dL (32-36); Mean Corpuscular Volume 88.2 fL (80-94); Mean Platelet Vol. 10.3 fl (6.2-12.0); Monocyte# 0.65 X10^3/uL; Monocyte% 10.7 % (0-10); NRBC Flagged by Analyzer 0 % (0-5); Neutrophil # 3.13 X10^3/uL (2.7-7.7); Neutrophil % 51.6 % (47-70); Platelet Count 168 K/mm3 (150-450); RBC Distribution Width CV 13.1 % (11.6-14.6); RBC Distribution Width SD 42.6 fl (35.1-43.9); Red Blood Count 4.34 M/mm3 (4.6-6.2); White Blood Count 6.1 K/mm3 (4.4-11.0)
--- NOTE | 2019-10-09 07:00 | RAD_ITS ---
STUDY: X-RAY - ABDOMEN/PELVIS REASON FOR EXAM: Male, 69 years old. LT SIDE K.S. NO PAIN THIS A.M. TECHNIQUE: Two AP supine views of the abdomen and pelvis. COMPARISON: None. FINDINGS: Normal visualized lung bases. There is an unremarkable bowel gas pattern. There is no demonstrated free abdominal air. The visualized liver, spleen and kidneys are grossly normal in size and morphology. Normal soft tissue structures. Normal visualized osseous structures. RAD/Abdomen Single View IMPRESSION: No evidence of acute abdominal process. If suspect renal stone recommend cross-sectional CT imaging for further characterization. Electronically Signed: Junior Lawler DO at 9:45 EDT , Service support ,
[2019-10-09 07:03] LABS: Anion Gap 4 (5-15); BUN 20 mg/dL (7-18); BUN/Creat Ratio 17.5 RATIO (10-20); Calcium,Total 8.2 mg/dL (8.5-10.1); Chloride 110 mmol/L (98-107); Creatinine, Serum 1.14 mg/dL (0.70-1.30); EST Glomerular Filtration Rate 68 mL/min (>60); Est Glom Filt Rate - Afr Amer 82 mL/min (>60); Estimated Creatinine Clearance 63.15 ml/min; Glucose 95 mg/dL (74-106); Potassium 3.9 mmol/L (3.5-5.1); Sodium Level 142 mmol/L (136-145)
[2019-10-09 10:07] VITALS: BP 144/64; PULSE 51; RESP 16; TEMP 36.8; O2SAT 97
[2019-10-09] MEDS: Tamsulosin HCl 0.4 MG Capsule PO (10:09)
--- NOTE | 2019-10-09 10:19 | PN_ITS ---
Patient Problems: Active and Suspected Problems Renal colic on left side (Acute) Subjective: 69-year-old male who is been passing a small 4 mm stone in the distal left ureter., After admission he has had no more pain since he is coming to the hospital. Today he was comfortable overnight no pain or discomfort. Not sure if he is passed a stone. On KUB and on see a stone. Possible he may or may have passed it but is likely to pass it soon and is not have any pain or discomfort I do not see any immediate gibbs for intervention, patient agrees. - Physical Exam Vitals/I&O's: Vital Signs Temp Pulse Resp BP Pulse Ox 98.2 F 51 L 16 144/64 H 97 10/09/19 10:07 10/09/19 10:07 10/09/19 10:07 10/09/19 10:07 10/09/19 10:07 Oxygen Delivery Method Room Air Weight: 77.1 kg Body Mass Index (BMI) 24.3 Intake and Output for Last 24 Hours 10/07/19 10/08/19 10/09/19 23:59 23:59 23:59 Intake Total 1000 / 1344 4324 / 4324 900 / 900 Output Total 1150 / 1150 1600 / 1600 Balance 1000 / 1144 3174 / 3174 -700 / -700 General: Alert, Oriented x3, Cooperative HEENT: Atraumatic, PERRLA, EOMI, Normocephalic Neck: Supple, No JVD, Negative Carotid Bruits Lungs: Clear to auscultation, Normal air movement Cardiovascular: Regular rate, No murmurs Abdomen: Bowel Sounds Present, Soft, Non Tender Extremities: No edema, Capillary Refill Less than 3 Seconds Skin: No rashes, No breakdown Musculoskeletal: No Tenderness to Palpation of Joints or Extremities Neurological: Cranial nerves II-XII grossly intact Psych/Mental Status: Normal Affect, Appropriate Laboratory Results 10/09/19 06:30: WBC 6.1, RBC 4.34 L, Hgb 12.6 L, Hct 38.3 L, MCV 88.2, MCH 29.0, MCHC 32.9, RDW Std Deviation 42.6, RDW Coeff of Donnie 13.1, Plt Count 168, MPV 10.3, Immature Gran % (Auto) 0.500, Neut % (Auto) 51.6, Lymph % (Auto) 33.1, [place] % (Auto) 10.7 H, Eos % (Auto) 3.6, Baso % (Auto) 0.5, Absolute Neuts (auto) 3.1, Absolute Lymphs (auto) 2.01, Nucleated RBC % 0 10/09/19 06:30: Sodium 142, Potassium 3.9, Chloride 110 H, Carbon Dioxide 28.0, Anion Gap 4 L, BUN 20 H, Creatinine 1.14, Estim Creat Clear Calc 63.15, Est GFR (MDRD) Af Amer 82, Est GFR (MDRD) Non-Af 68, BUN/Creatinine Ratio 17.5, Glucose 95, Calcium 8.2 L Current Medications Dextrose (D50w Syringe) 0 gm IV X1 PRN; Protocol PRN Reason: Hypoglycemia Glucagon () 1 mg IM .X1 PRN PRN Reason: Hypoglycemia Ketorolac Tromethamine (Toradol (Bkc)) 30 mg IV Q8H PRN PRN PRN Reason: Pain Score 1-10 Stop: 10/12/19 19:31 Last Admin: 10/08/19 01:10 Dose: 30 mg Documented by: Morphine Sulfate () 4 mg IV Q3H PRN PRN PRN Reason: Pain Score 6-1010 Last Admin: 10/07/19 20:33 Dose: 4 mg Documented by: Nutritional Formula (Lactose Free) (Ensure Enlive) 120 ml PO 4X/DAY [facility] Last Admin: 10/09/19 10:09 Dose: 120 ml Documented by: Ondansetron HCl (Zofran) 4 mg IV Q8H PRN PRN PRN Reason: NAUSEA/VOMITING Oxycodone HCl (Oxyir) 5 mg PO Q6H PRN PRN PRN Reason: PAIN 1-1010 Last Admin: 10/07/19 22:01 Dose: 5 mg Documented by: Sodium Chloride () 10 - 40 ml IV UD PRN PRN Reason: SALINE FLUSH Last Admin: 10/08/19 01:10 Dose: 10 ml Documented by: Tamsulosin HCl (Flomax) 0.4 mg PO DAILY [facility] Last Admin: 10/09/19 10:09 Dose: 0.4 mg Documented by: Medical Necessity - Tobacco Use Smoking Status: Former smoker Tobacco Use: Cigarettes Assessment/Plan All Active Problems Renal colic on left side (Acute) 69-year-old male with 4 mm stone in distal left ureter probably will pass it, he is not have any pain or discomfort no fevers or chills and I see no reason to keep him here longer to watch. He can go home with pain medicine push fluids and follow-up in my office for checkup after discharge. Call me with questions.
--- NOTE | 2019-10-09 12:41 | DCINST_ITS ---
- Discharge Diagnoses Current Active Problems: Current Active and Chronic Problems Renal colic on left side (Acute) You will use the following diet at home:: Regular Your food should be the consistency of: Regular Your liquids should be the consistency of: Regular/Thin Discharge Activity: Return to Normal Activity Weight Bearing Status: Weight bearing as tolerated Call your doctor if you observe: Fever of 101 or Higher, Shortness of breath, Dizziness, Uncontrolled pain Instructions: Kidney Stones: Are You at Risk?, Understanding Kidney Stones, Preventing Kidney Stones Additional Instructions: keep well hydrated with oral fluids Allergies/Adverse Reactions: Allergies No Known Allergies Allergy (Verified 10/07/19 13:41) Medications to take at Discharge Ondansetron [Zofran Odt] 4 mg PO Q8H PRN PRN #10 tab 08/02/19 Tamsulosin HCl [Flomax] 0.4 mg PO DAILY #7 cap 10/03/19 Oxycodone HCl/Acetaminophen [Endocet 5-325 Tablet] 1 tab PO Q6H PRN PRN 10/07/19 Primary Care Physician: Jaya Sue MD [Primary Care Provider] - Please follow up with your Primary Care Physician in: 1-2 weeks Test Results: Test results from this visit will be discussed in further detail at your follow- up appointment, if applicable. Please Follow Up With: Kenny Mcelroy MD When: 1 week Proposed Discharge Date: 10/09/19
--- NOTE | 2019-10-09 12:47 | DS.PCM_ITS ---
Discharge Date and Diagnosis - Problem List Patient Problems: Active and Suspected Problems Renal colic on left side (Acute) Date of Admission: 10/07/19 Date of Discharge: 10/09/19 - Primary Discharge Diagnosis Acute Problems: Active Problems Renal colic on left side (Acute) nephrolithiasis - Secondary Discharge Diagnosis Chronic Problems: Chronic Problems Hx of appendectomy (Chronic) History of inguinal hernia repair (Chronic) Hospital Course and Treatment Imaging Results: 10/09/19 07:00 KUB [Abdomen Single View] [RAD] Urgent Diagnostic Data KUB X-Ray 10/09/19 07:00 IMPRESSION: No evidence of acute abdominal process. If suspect renal stone recommend cross-sectional CT imaging for further characterization. Electronically Signed: Junior Lawler DO at 9:45 EDT , Service support , urology- Dr Mcelroy Operations: None Procedures: None Summary of Care Provided: The patient is a 69 year old M with no significant past medical history was admitted through the ED on 10/07/2019 with a complaint of left-sided abdominal pain. Patient was seen in the ED about 4 days prior to this admission after he complained of similar symptoms and imaging done showed evidence of a 4 mm kidney stone in the ureter. He was discharged home with pain meds again today. He therefore decided to come into the hospital because he could not tolerate the pain. He last had kidney stones about 30 years ago. He denied any fever or chills, but admitted to nausea and vomiting. He denied any burning with urination. Review of symptoms otherwise negative. On admission vitals were significant for blood pressure of 175/68, with temperature of 98.1 and pulse rate of 63 and respiratory of 16. Pulse ox was 95% on room air. Chemistry showed creatinine of 1.32 with potassium of 3.5. CBC was unremarkable. KUB showed nonspecific bowel gas pattern with punctate bilateral renal stones seen on previous CT not been evident on this exam) left lower quadrant inguinal he rniorrhaphy. He was admitted to be managed for renal colic due to nephrolithiasis. He was hydrated with IV fluids and started with IV morphine for pain. Urology was consulted. Pain subsequently improved. Urology reviewed patient and advocated conservative management as pain had improved. KUB done on day of discharge showed no evidence of acute abdominal process and showed no stone. Patient remained stable and was discharged on 10/09/2019. He is to continue taking his Percocet tablets as needed for pain as well as p.o. tamsulosin. He was counseled to keep well hydrated with oral fluids. He is to follow-up with urology within 1 week. Patient seen and examined prior to discharge. He had no complaints. Review of symptoms otherwise negative. Labs and vitals reviewed. Home medication reviewed and reconciled. O/E: Vital Signs Temp Pulse Resp BP Pulse Ox 98.2 F 51 L 16 144/64 H 97 10/09/19 10:10/09/19 10:10/09/19 10:10/09/19 10:10/09/19 10:07 General: Alert, Oriented x3, Cooperative, No apparent distress HEENT: Atraumatic, PERRLA, EOMI, Normocephalic Oral: Moist Mucosa Neck: Supple, No JVD, Negative Carotid Bruits Lungs: Clear to auscultation, Normal air movement, No rhonchi, No wheeze, No rales Cardiovascular: Regular rate, Regular Rhythm, Normal S1, Normal S2, No murmurs Abdomen: Bowel Sounds Present, Soft, Non Tender, Non-Distended, No Hepato- splenomegaly Extremities: No clubbing, No cyanosis, No edema, Capillary Refill Less than 3 Seconds Skin: No rashes, No breakdown Musculoskeletal: No Tenderness to Palpation of Joints or Extremities Lymphatic: No Cervical, Supraclavicular, or Inguinal Adenopathy Neurological: Cranial nerves II-XII grossly intact, Neuro grossly intact, Motor Exam 5/5 strength throughout Psych/Mental Status: Normal Affect, Appropriate, Alert and oriented to time, place, person, mood and affect Plan is for dc home today as above. Patient Problems: Active and Suspected Problems Renal colic on left side (Acute) - Physical Exam Vitals/I&O's: Vital Signs Temp Pulse Resp BP Pulse Ox 98.2 F 51 L 16 144/64 H 97 10/09/19 10:10/09/19 10:10/09/19 10:10/09/19 10:10/09/19 10:07 Oxygen Delivery Method Room Air Weight: 169 lb 15.622 oz Body Mass Index (BMI) 24.3 Intake and Output for Last 24 Hours 10/07/19 10/08/19 10/09/19 23:59 23:59 23:59 Intake Total 1000 / 1344 4324 / 4324 900 / 900 Output Total 1150 / 1150 1600 / 1600 Balance 1000 / 1144 3174 / 3174 -700 / -700 Laboratory Results 10/09/19 06:30: WBC 6.1, RBC 4.34 L, Hgb 12.6 L, Hct 38.3 L, MCV 88.2, MCH 29.0, MCHC 32.9, RDW Std Deviation 42.6, RDW Coeff of Donnie 13.1, Plt Count 168, MPV 10.3, Immature Gran % (Auto) 0.500, Neut % (Auto) 51.6, Lymph % (Auto) 33.1, [place] % (Auto) 10.7 H, Eos % (Auto) 3.6, Baso % (Auto) 0.5, Absolute Neuts (auto) 3.1, Absolute Lymphs (auto) 2.01, Nucleated RBC % 0 10/09/19 06:30: Sodium 142, Potassium 3.9, Chloride 110 H, Carbon Dioxide 28.0, Anion Gap 4 L, BUN 20 H, Creatinine 1.14, Estim Creat Clear Calc 63.15, Est GFR (MDRD) Af Amer 82, Est GFR (MDRD) Non-Af 68, BUN/Creatinine Ratio 17.5, Glucose 95, Calcium 8.2 L Current Medications Dextrose (D50w Syringe) 0 gm IV X1 PRN; Protocol PRN Reason: Hypoglycemia Glucagon () 1 mg IM .X1 PRN PRN Reason: Hypoglycemia Ketorolac Tromethamine (Toradol (Bkc)) 30 mg IV Q8H PRN PRN PRN Reason: Pain Score 1-1010 Stop: 10/12/19 19:31 Last Admin: 10/08/19 01:10 Dose: 30 mg Documented by: Morphine Sulfate () 4 mg IV Q3H PRN PRN PRN Reason: Pain Score 6-10/10 Last Admin: 10/07/19 20:33 Dose: 4 mg Documented by: Nutritional Formula (Lactose Free) (Ensure Enlive) 120 ml PO 4X/DAY [facility] Last Admin: 10/09/19 10:09 Dose: 120 ml Documented by: Ondansetron HCl (Zofran) 4 mg IV Q8H PRN PRN PRN Reason: NAUSEA/VOMITING Oxycodone HCl (Oxyir) 5 mg PO Q6H PRN PRN PRN Reason: PAIN 1-02/25 Last Admin: 10/07/19 22:01 Dose: 5 mg Documented by: Sodium Chloride () 10 - 40 ml IV UD PRN PRN Reason: SALINE FLUSH Last Admin: 10/08/19 01:10 Dose: 10 ml Documented by: Tamsulosin HCl (Flomax) 0.4 mg PO DAILY EDDIE Last Admin: 10/09/19 10:09 Dose: 0.4 mg Documented by: Discharge Diet: Low fat/ Low Cholesterol Discharge Activity: Return to Normal Activity Weight Bearing Status: Weight bearing as tolerated Call your doctor if you observe: Fever of 101 or Higher, Shortness of breath, Dizziness, Uncontrolled pain Home Medications: Medications to take at Discharge Ondansetron [Zofran Odt] 4 mg PO Q8H PRN PRN #10 tab 08/02/19 Tamsulosin HCl [Flomax] 0.4 mg PO DAILY #7 cap 10/03/19 Oxycodone HCl/Acetaminophen [Endocet 5-325 Tablet] 1 tab PO Q6H PRN PRN 10/07/19 Primary Care Physician: Jaya Sue MD [Primary Care Provider] - Please follow up with your Primary Care Physician in: 1-2 weeks Please Follow Up With: Kenny Mcelroy MD When: 1 week Patient Instructions: Kidney Stones: Are You at Risk?, Understanding Kidney Stones, Preventing Kidney Stones Disposition: Home Minutes spent on discharge:: 40 Patient Condition:: Stable Medical Necessity - Tobacco Use Smoking Status: Former smoker Tobacco Use: Cigarettes Meaningful Use Info Meaningful Use Diagnoses (Choose all that apply): None applicable Inpatient E&M: 97960 [facility]
[2019-10-09 13:05] VITALS: BP 128/62; PULSE 57; RESP 16; TEMP 36.7; O2SAT 94
== END 2019-10-09 14:03 | disposition home or self-care (01) ==
LOC: ED 15:13 → MS3 18:46
PROVIDERS: Admitting Provider Student in an Organized Health Care Education/Training Program; Emergency Provider Emergency Medicine; PCP Family Medicine; Visit Provider Student in an Organized Health Care Education/Training Program
DX: N20.0 Calculus of kidney (principal); Z87.891 Personal history of nicotine dependence; N18.3 Chronic kidney disease, stage 3 (moderate); R03.0 Elevated blood-pressure reading, without diagnosis of hypertension; N17.9 Acute kidney failure, unspecified
CPT/HCPCS: 36415; 74018; 80048; 81001; 85025; 96361; 96374; 96375; 96376; 99218; 99285; J7030; A4216; G0378; J2405

== ENCOUNTER 2019-10-12 19:24 | Observation (INO) | payer MEDICARE, SELFPAY ==
[2019-10-12 19:24] VITALS: BP 119/69; PULSE 72; RESP 18; TEMP 36.4; O2SAT 96; BMI 24.6
--- NOTE | 2019-10-12 19:45 | ED.DCSUM_ITS ---
History of Present Illness Chief Complaint: Flank Pain Informant: Patient Onset: Weeks Context: Sudden Onset Timing: Intermittent, Waxes and wanes Quality: Colicky pain Location: Left flank and left lower abdomen Current Severity: Moderate Maximum Severity: Severe Worsened by: Nothing Relieved by: Nothing Associated Symptoms: Nausea Narrative: Patient is an elderly male with no sniffing a past medical history who was seen on October 02 and diagnosed with an obstructing 4 mm left UPJ stone. He returned to the emergency department on and was admitted until . He states he was doing well until today. He did make an appointment with urology. He is complained of severe pain with nausea. He reports dysuria at the end of urination and urgency. He states he is going small amounts, only. He denies fever or chills. He denies any other symptoms. He denies history of hypertension, diabetes, renal disease or peptic ulcer disease. He has no contraindication to NSAIDs. Prior similar symptoms: Yes Recent Illness/Hospitalization: Yes - Past Medical History (1) Renal colic on left side Status: Acute (2) Hx of appendectomy Status: Chronic Past Medical History - Allergies and Home Meds Allergies/Adverse Reactions: Allergies No Known Allergies Allergy (Verified 10/07/19 13:41) Primary Care Physician: Jaya Sue MD [Primary Care Provider] - Surgical History: appendectomy, herniorrhaphy Lives: Spouse/ Significant Other Smoking Status: Never smoker Alcohol: None Drugs: None - Family History Maternal Family History: Reports: No pertinent history Paternal Family History: Reports: No pertinent history Review of Systems General: Denies: Chills, Fever, Malaise, Subjective, Sweats Eyes: Denies: Visual changes - bilaterally, Blurred Vision - bilaterally ENT: Denies: Rhinorrhea, Sore throat Cardiovascular: Denies: Chest pain, Palpitations Respiratory: Denies: Dyspnea, Cough, Sputum Gastrointestinal: Reports: Abdominal pain, Nausea. Denies: Vomiting, Diarrhea, Melena, Hematochezia Genitourinary: Denies: Dysuria, Hematuria, Frequency Musculoskeletal: Reports: Back pain. Denies: Myalgias, Arthralgias, Neck pain, Swelling, Extremity Pain Skin: Reports: Rash, Wounds Neurological: Reports: Headache. Denies: Parasthesia, Numbness Endocrine: Denies: Polyuria, Polydipsia Physical Exam Vital Signs/Narrative: Vital Signs Temp Pulse Resp BP Pulse Ox 10/12/19 19:24 97.6 F L 72 18 119/69 96 Inital Vital Signs reviewed: Yes General: Well nourished, Well developed, - - Looks uncomfortable Head: Normocephalic, Atraumatic Eyes: Perrl, EOMI. Negative for: Pale conjunctiva, Scleral icterus ENT: Moist mucous membranes, No rhinorrhea Neck: Supple, Nontender, No lymphadenopathy, No JVD Cardiovascular: Regular rate, Regular rhythm, No murmurs, Normal S1, Normal S2 Respiratory: No distress, CTA bilaterally, Chest nontender Abdomen: Soft, Nontender, Nondistended, Normal bowel sounds, No masses Rectal: Deferred Back: Nontender, Normal Inspection. Negative for: CVA tenderness Extremities: Nontender, No edema Skin: Normal color, No rash, No Trauma. Negative for: Cyanosis, Diaphoresis, Jaundice Neurological: Alert, Oriented x3, Cranial nerves II-XII grossly intact, Normal Strength, Normal Sensation Psychological: Normal affect, Normal Mood Diagnostic/Tx/Re-eval Laboratory Results 10/12/19 10/12/19 19:40 19:40 Sodium 144 Potassium 3.6 Chloride 110 H Carbon Dioxide 24.0 Anion Gap 10 BUN 26 H Creatinine 1.48 H Estim Creat Clear Calc 48.64 Est GFR (MDRD) Af Amer 61 Est GFR (MDRD) Non-Af 50 L BUN/Creatinine Ratio 17.6 Glucose 131 H Calcium 9.6 Urine Color Yellow Urine Clarity Sl. Cloudy Urine pH 5.0 Ur Specific [place] 1.030 Urine Protein 30 H Urine Glucose (UA) Normal Urine Ketones 5 H Urine Occult Blood 250 H Urine Nitrite Negative Urine Bilirubin Negative Urine Urobilinogen Normal Ur Leukocyte Esterase Negative Urine RBC 10-25 SEEN Urine WBC 0 SEEN Ur Squamous Epith Cells 0 SEEN Calcium Oxalate Crystal 1+ Urine Bacteria 0 SEEN Urine Mucus 1+ Patient's creatinine has increased from 1.1-1.48. Patient is still having pain. There is no evidence of infection. Spoke with Dr. Mcelroy who will admit patient. He asked for the floor nurse to call for orders. - Medical Decision Making Reviewed prior visits and work-up. Patient was diagnosed with a 4 mm obstructing left UPJ stone. Because patient complains of dysuria obtain UA to rule out infection. Since there is no contraindication to NSAIDs he was treated with 15 mg of Toradol IV push. He also received 4 mg of morphine for pain control and 4 mg of Zofran IV push for nausea. A basic metabolic panel was obtained to assess renal function. If renal function is normal will discharge with prescription for NSAID as well. Patient be admitted because of continued pain and acute renal insufficiency. ED Disposition - Plan for ED Patient: Disposition: Acute Care Hospital [facility] Diagnosis: Hydronephrosis concurrent with and due to calculi of kidney and ureter, Acute renal insufficiency Referrals: Jaya Sue MD [Primary Care Provider] -
[2019-10-12] MEDS: Ketorolac 30 MG/ML Syringe 15 MG IV (19:55)
[2019-10-12] MEDS: Morphine 4 MG/ML Syringe IV (19:56)
[2019-10-12] MEDS: Ondansetron 4 MG/2 ML Vial IV (19:56)
[2019-10-12] MEDS: 0.9% Normal Saline 1,000 ML 250 ML IV (19:59)
[2019-10-12 20:21] LABS: Bacteria 0 SEEN /hpf (None Seen); Squamous Epithelial Cells - UA 0 SEEN /hpf (0-5); White Blood Cells 0 SEEN /hpf (0-5)
[2019-10-12 20:27] LABS: Color, Urine Yellow (Yellow); Glucose, Dipstick Normal (Normal); Ketone-Dipstick 5 mg/dl (Negative); Leukocyte Esterase-Dipstick Negative /ul (Negative); Nitrite-Dipstick Negative (Negative); Occult Blood-Urine 250 /ul (Negative); Protein-Dipstick 30 mg/dl (Negative); Urine Bilirubin Dipstick Negative (Negative); Urine Clarity Sl. Cloudy (Clear); Urine Urobilinogen Normal (Normal)
[2019-10-12 20:32] LABS: Anion Gap 10 (5-15); BUN 26 mg/dL (7-18); BUN/Creat Ratio 17.6 RATIO (10-20); Calcium,Total 9.6 mg/dL (8.5-10.1); Chloride 110 mmol/L (98-107); Creatinine, Serum 1.48 mg/dL (0.70-1.30); EST Glomerular Filtration Rate 50 mL/min (>60); Est Glom Filt Rate - Afr Amer 61 mL/min (>60); Estimated Creatinine Clearance 48.64 ml/min; Glucose 131 mg/dL (74-106); Potassium 3.6 mmol/L (3.5-5.1); Sodium Level 144 mmol/L (136-145)
[2019-10-12 20:33] LABS: Calcium Oxalate Crystals Ur 1+ /hpf (<or=2+); Mucous, Urine 1+ /hpf (<or=2+); Red Blood Cells-Urine 10-25 SEEN /hpf (0-5)
[2019-10-12 20:56] VITALS: BP 154/65; PULSE 86; RESP 13; TEMP 36.9; O2SAT 96
[2019-10-12 21:31] VITALS: BMI 24.1
[2019-10-12 21:50] VITALS: BP 139/58; PULSE 63; RESP 20; TEMP 37.2; O2SAT 96
[2019-10-12] MEDS: Tamsulosin HCl 0.4 MG Capsule PO (22:46)
[2019-10-12] MEDS: 0.9% Saline Lock 10 ML Syringe IV (22:46)
[2019-10-12] MEDS: Acetaminophen 500 MG Tablet PO (22:46)
[2019-10-12] MEDS: Morphine 2 MG/ML Syringe IV (22:47)
[2019-10-13] VITALS (8 sets, daily range): BP systolic 102–152; BP diastolic 63–75; PULSE 52–86; RESP 16–18; TEMP 36.6–37.6; O2SAT 93–98; BMI 24.3; BMI 24.1
[2019-10-13] MEDS: 0.9% Normal Saline 1,000 ML 125 ML IV ×2 (01:55→10:04)
[2019-10-13] MEDS: Morphine 2 MG/ML Syringe IV ×4 (02:26→13:31)
[2019-10-13] MEDS: 0.9% Saline Lock 10 ML Syringe IV ×4 (02:26→13:31)
--- NOTE | 2019-10-13 07:47 | PCM.HP.STD ---
Problem List (1) Left ureteral calculus Status: Acute History of Present Illness Date of Admission: 10/13/19 Chief Complaint: Left ureteral calculi failed to pass The patient is a 69 year old male who came back to the emergency room he was admitted for pain control a few days ago then the pain was gone completely x-ray was done no stone was visible we thought that he had passed a stone he was feeling much better so he was discharged home he then presented back to the emergency room in severe pain no imaging was done but still having said severe pain on the left side CAT scan demonstrated a stone passing the left side fairly small should pass it by now but he is failed conservative measures so working to bring him into the hospital and perform intervention. Past Medical History Past Medical History (Chronic Problems): Chronic Problems Hx of appendectomy (Chronic) History of inguinal hernia repair (Chronic) Allergies No Known Allergies Allergy (Verified 10/07/19 13:41) Home Medications: Ambulatory Orders Medication Instructions Recorded Oxycodone HCl/Acetaminophen 1 tab PO Q6H PRN PRN 10/07/19 [Endocet 5-325 Tablet] Tamsulosin HCl [Flomax] 0.4 mg PO DAILY 10/12/19 Surgical History: appendectomy, herniorrhaphy Psychiatric History: No pertinent psych hx Lives: Spouse/ Significant Other Smoking Status: Former smoker Alcohol: None Drugs: None - *Family History Maternal History Items: No pertinent history Paternal History Items: No pertinent history Review of Systems Constitutional: Denies: Chills, Fever, Weight Change HEENT: Denies: Head Aches, Sinus Congestion, Sinus Drainage Cardiovascular: Denies: Chest Pain, Palpitations Respiratory: Denies: Cough, Shortness of breath at rest, Sputum production Gastrointestinal: Denies: Abdominal Pain, Nausea, Vomiting Genitourinary: Denies: Dysuria Musculoskeletal: Denies: Joint Pain, Joint Tenderness Skin: Denies: Rash, Wounds Neurological: Denies: Numbness, Tingling, Focal weakness Psychiatric: Denies: Anxiety, Depression, Homicidal Ideations, Suicidal Ideations Hematologic/ Lymphatic: Denies: Easy Bruising, Easy Bleeding VTE Information - Inpt Only VTE Present on Admission: No VTE Mechan Device Prophylaxis: SCD's Patient Problems: Active and Suspected Problems Hydronephrosis concurrent with and due to calculi of kidney and ureter (Acute) Acute renal insufficiency (Acute) Left ureteral calculus (Acute) - Physical Exam Vitals/I&O's: Vital Signs Temp Pulse Resp BP Pulse Ox 98.6 F 86 16 138/66 H 97 10/13/19 07:42 10/13/19 07:42 10/13/19 07:42 10/13/19 07:42 10/13/19 07:42 Oxygen Delivery Method Room Air Weight: 76.3 kg Body Mass Index (BMI) 24.1 Intake and Output for Last 24 Hours 10/11/19 10/12/19 10/13/19 23:59 23:59 23:59 Intake Total 670.83 / 970.83 629.17 / 629.17 Output Total 200 / 200 Balance 670.83 / 920.83 429.17 / 429.17 General: Alert, Oriented x3, Cooperative HEENT: Atraumatic, PERRLA, EOMI, Normocephalic Neck: Supple, No JVD, Negative Carotid Bruits Lungs: Clear to auscultation, Normal air movement Cardiovascular: Regular rate, No murmurs Abdomen: Bowel Sounds Present, Soft, Non Tender Extremities: No edema, Capillary Refill Less than 3 Seconds Skin: No rashes, No breakdown Musculoskeletal: No Tenderness to Palpation of Joints or Extremities Neurological: Cranial nerves II-XII grossly intact Psych/Mental Status: Normal Affect, Appropriate Laboratory Results 10/12/19 19:40: Sodium 144, Potassium 3.6, Chloride 110 H, Carbon Dioxide 24.0, Anion Gap 10, BUN 26 H, Creatinine 1.48 H, Estim Creat Clear Calc 48.64, Est GFR (MDRD) Af Amer 61, Est GFR (MDRD) Non-Af 50 L, BUN/Creatinine Ratio 17.6, Glucose 131 H, Calcium 9.6 10/12/19 19:40: Urine Color Yellow, Urine Clarity Sl. Cloudy, Urine pH 5.0, Ur Specific [place] 1.030, Urine Protein 30 H, Urine Glucose (UA) Normal, Urine Ketones 5 H, Urine Occult Blood 250 H, Urine Nitrite Negative, Urine Bilirubin Negative, Urine Urobilinogen Normal, Ur Leukocyte Esterase Negative, Urine RBC 10-25 SEEN, Urine WBC 0 SEEN, Ur Squamous Epith Cells 0 SEEN, Calcium Oxalate Crystal 1+, Urine Bacteria 0 SEEN, Urine Mucus 1+ Current Medications Acetaminophen (Tylenol) 500 mg PO Q4H PRN PRN PRN Reason: Pain Score 1-1010 Last Admin: 10/12/19 22:46 Dose: 500 mg Documented by: Sodium Chloride () 1,000 mls @ 125 mls/hr IV .Q8H [facility] Last Admin: 10/13/19 01:55 Dose: 125 mls/hr Documented by: Morphine Sulfate () 2 mg IV Q2H PRN PRN PRN Reason: Pain Score 4-1010 Last Admin: 10/13/19 06:24 Dose: 2 mg Documented by: Nutritional Formula (Lactose Free) (Ensure Enlive) 120 ml PO 4X/DAY [facility] Last Admin: 10/13/19 07:04 Dose: Not Given Documented by: Ondansetron HCl (Zofran) 4 mg IV Q6H PRN PRN PRN Reason: NAUSEA/VOMITING Sodium Chloride () 10 - 40 ml IV UD PRN PRN Reason: SALINE FLUSH Last Admin: 10/13/19 06:24 Dose: 10 ml Documented by: Tamsulosin HCl (Flomax) 0.4 mg PO QHS [facility] Last Admin: 10/12/19 22:46 Dose: 0.4 mg Documented by: Assessment/Plan All Active Problems Renal colic on left side (Acute) Hydronephrosis concurrent with and due to calculi of kidney and ureter (Acute) Acute renal insufficiency (Acute) Left ureteral calculus (Acute) Plan for cystoscopy and left stent placement today n.p.o.
--- NOTE | 2019-10-13 14:09 | NURSING ---
Pt taken from unit for OR
--- NOTE | 2019-10-13 14:53 | DCINST_ITS ---
Discharge Diet: No Restrictions Discharge Activity: Return to Normal Activity, May Not Drive - for 2 days. Additional Activity Instructions:: Please be aware that pain medications may cause nausea. You should typically eat light foods as you take your pain medication. Pain medication may cause constipation, if this is a problem for you, please discuss with your doctor. Allergies/Adverse Reactions: Allergies No Known Allergies Allergy (Verified 10/07/19 13:41) Medications to take at Discharge Oxycodone HCl/Acetaminophen [Endocet 5-325 Tablet] 1 tab PO Q6H PRN PRN 10/07/19 Tamsulosin HCl [Flomax] 0.4 mg PO DAILY 10/12/19 Ciprofloxacin [Cipro] 500 mg PO BID #6 tab 10/13/19 Hydrocodone/Acetaminophen [[place] 5-325 Tablet] 1 ea PO Q4H PRN PRN 5 Days #14 tab 10/13/19 The following prescriptions were given: Ciprofloxacin [Cipro] 500 mg PO BID #6 tab Prescription Printed Hydrocodone/Acetaminophen [[place] 5-325 Tablet] 1 ea PO Q4H PRN PRN 5 Days #14 tab PRN Reason: Pain Score 1-10/10 Prescription Printed Primary Care Physician: Jaya Sue MD [Primary Care Provider] - Test Results: Test results from this visit will be discussed in further detail at your follow- up appointment, if applicable. Please Follow Up With: Kenny Mcelroy MD When: please call to make an appointment.
--- NOTE | 2019-10-13 15:36 | OP.PCM_ITS ---
Problem List (1) Left ureteral calculus Status: Acute Report of Operation Date of Procedure: 10/13/19 Pre-Operative Diagnosis: Obstructing left ureteral calculus Post-Operative Diagnosis: The same Surgery/Procedure Performed:: Cystoscopy, left retrograde pyelogram, left stent placement, basket extraction of stone. Description of Surgical Findings:: 69-year-old male presented again to the hospital severe pain from a very small stone in the distal ureter most likely thought that he would be able to pass it but still has not been able to pass it he now is willing to undergo treatment f or the stone. He was taken back to the operating room after smooth induction of general anesthesia he was placed in dorsolithotomy position went into the bladder with a 21 Italian rigid cystourethroscope and from the left ureteral orifice he could see a stone poking out the ureteral orifice I used the basket and extracted the stone without any problems, I then performed a retrograde pyelograms in contrast going up to the kidney, the left ureter was fairly inflamed and swollen so I decided place a stent over the wire advanced a 6 Italian by 26 cm stent left the stent in place, with a string but cut it short to prevent early extraction. Drained the bladder patient anesthetic is reversed plan to see him next week for cystoscopy stent removal. Type of Anesthesia:: General Drains: stent left side - Admit VTE Documentation VTE Present on Admission: No VTE Mechan Device Prophylaxis: SCD's
--- NOTE | 2019-10-14 07:21 | DS.PCM_ITS ---
Discharge Date and Diagnosis Date of Admission: 10/13/19 Date of Discharge: 10/14/19 - Secondary Discharge Diagnosis Chronic Problems: Chronic Problems Hx of appendectomy (Chronic) History of inguinal hernia repair (Chronic) Hospital Course and Treatment Operations: None, - - Ureteroscopy extraction of stone and stent placement on the left Summary of Care Provided: The patient is a 69 year old male was admitted for kidney stone underwent ureteroscopy extraction of stone and stent placement on the left he was then discharged home with a stent in place. - Physical Exam Vitals/I&O's: Vital Signs Temp Pulse Resp BP Pulse Ox 98.3 F 60 18 123/66 H 98 10/13/19 18:16 10/13/19 18:16 10/13/19 18:16 10/13/19 18:16 10/13/19 18:16 Oxygen Delivery Method Room Air Weight: 77.111 kg Body Mass Index (BMI) 24.3 Intake and Output for Last 24 Hours 10/12/19 10/13/19 10/14/19 23:59 23:59 23:59 Intake Total 670.83 / 970.83 2989.17 / 2989.17 Output Total 675 / 675 Balance 670.83 / 920.83 2314.17 / 2314.17 General: Alert, Oriented x3, Cooperative HEENT: Atraumatic, PERRLA, EOMI, Normocephalic Neck: Supple, No JVD, Negative Carotid Bruits Lungs: Clear to auscultation, Normal air movement Cardiovascular: Regular rate, No murmurs Abdomen: Bowel Sounds Present, Soft, Non Tender Extremities: No edema, Capillary Refill Less than 3 Seconds Skin: No rashes, No breakdown Musculoskeletal: No Tenderness to Palpation of Joints or Extremities Neurological: Cranial nerves II-XII grossly intact Psych/Mental Status: Normal Affect, Appropriate Microbiology Past 72 Hours 10/13/19 09:07 Mucosa - Nasopharyngeal Coronavirus COVID-19 PCR - Final Discharge Diet: No Restrictions Discharge Activity: Return to Normal Activity, May Not Drive - for 2 days. Additional Activity Instructions:: Please be aware that pain medications may cause nausea. You should typically eat light foods as you take your pain medication. Pain medication may cause constipation, if this is a problem for you, please discuss with your doctor. Home Medications: Medications to take at Discharge Oxycodone HCl/Acetaminophen [Endocet 5-325 Tablet] 1 tab PO Q6H PRN PRN 10/07/19 Tamsulosin HCl [Flomax] 0.4 mg PO DAILY 10/12/19 Ciprofloxacin [Cipro] 500 mg PO BID #6 tab 10/13/19 Hydrocodone/Acetaminophen [[place] 5-325 Tablet] 1 ea PO Q4H PRN PRN 5 Days #14 t ab 10/13/19 Following Prescrptions Were Given to Patient: Ciprofloxacin [Cipro] 500 mg PO BID #6 tab Prescription Printed Hydrocodone/Acetaminophen [[place] 5-325 Tablet] 1 ea PO Q4H PRN PRN 5 Days #14 tab PRN Reason: Pain Score 1-10/10 Prescription Printed Primary Care Physician: Jaya Sue MD [Primary Care Provider] - Please Follow Up With: Kenny Mcelroy MD When: please call to make an appointment. Medical Necessity - Tobacco Use Smoking Status: Former smoker Meaningful Use Info Meaningful Use Diagnoses (Choose all that apply): None applicable
== END 2019-10-13 18:57 | disposition home or self-care (01) ==
LOC: ED 20:47 → MS3 22:42
PROVIDERS: Admitting Provider Urology; Emergency Provider Emergency Medicine; PCP Family Medicine; Referring Provider Urology; Visit Provider Urology
PROC: (CPT 52332; principal; 2019-10-13 15:25)
DX: N13.2 Hydronephrosis with renal and ureteral calculous obstruction (principal); Z87.891 Personal history of nicotine dependence
CPT/HCPCS: 52320; 52332; 76000; 80048; 81001; 87635; 90471; 96361; 96374; 96375; 96376; 99218; 99285; G2023; J7030; A4216; C2617; G0378; J2405; U0004

== ENCOUNTER → 2019-11-29 11:22 | Outpatient (CLI) | payer MEDICARE, SELFPAY ==
[2019-10-13 13:28] VITALS: BMI 24.3
[2019-11-29 13:18] LABS: PSA,Total - Annual Screen 2.92 ng/mL (0.00-4.00)
== END ==
PROVIDERS: PCP Family Medicine; Referring Provider Urology; Visit Provider Urology
DX: Z12.5 Encounter for screening for malignant neoplasm of prostate (principal)
CPT/HCPCS: 36415; 84153; G0103

== ENCOUNTER → 2021-05-18 14:24 | Outpatient (CLI) | payer MEDICARE, SELFPAY ==
[2021-05-18 14:49] LABS: Erythrocyte Sedimentation Rate 43 mm/hr (0-20)
[2021-05-18 15:00] LABS: ALB/GLOB Ratio 0.7 RATIO (0.9-2.4); AST(SGOT) 18 U/L (15-37); Alanine Aminotransfer ALT/SGPT 19 U/L (16-61); Albumin, Serum 2.8 g/dL (3.2-5.0); Alkaline Phosphatase 92 U/L (45-117); Anion Gap 7 (5-15); BUN 27 mg/dL (7-18); BUN/Creat Ratio 12.7 RATIO (10-20); Calcium,Total 8.6 mg/dL (8.5-10.1); Chloride 110 mmol/L (98-107); Creatinine, Serum 2.13 mg/dL (0.70-1.30); EST Glomerular Filtration Rate 33 mL/min (>60); Est Glom Filt Rate - Afr Amer 40 mL/min (>60); Globulin 4.3 g/dL (2.2-4.2); Glucose 90 mg/dL (74-106); Potassium 3.7 mmol/L (3.5-5.1); Protein, Total 7.1 g/dL (6.4-8.2); Sodium Level 142 mmol/L (136-145)
== END ==
PROVIDERS: PCP Family Medicine; Visit Provider Registered Nurse
DX: N17.9 Acute kidney failure, unspecified (principal)
CPT/HCPCS: 36415; 80053; 85652

== ENCOUNTER 2021-05-18 16:15 | Emergency (ER) | payer MEDICARE, SELFPAY ==
[2021-05-18 16:16] VITALS: BP 152/65; PULSE 66; RESP 18; TEMP 36.6; O2SAT 99; BMI 24.3
--- NOTE | 2021-05-18 18:11 | EDS_ITS ---
HPI History of Present Illness Chief Complaint: Abn Labs Narrative Narrative: Patient presenting with abnormal labs. He states that his creatinine had gone up over the last couple of days. Patient was seen 2 days ago at urgent care due to having darker urine. He states that he did not have any dysuria. Has not had fever or chills. He has no flank pain. He states he feels otherwise well. His urinalysis showed some urine protein. The patient states that he was put on Bactrim for a kidney infection and when he returned for repeat creatinine his creatinine worsened. After this he was sent to the ER for evaluation. The patient has no complaints currently [facility] Medical History Renal calculi Home Medications sulfamethoxazole-trimethoprim 1 tab PO BID 05/18/21 [History Last Taken Unknown] Allergy/AdvReac Type Severity Reaction Status Date / Time No Known Allergies Allergy Verified 10/07/19 13:41 Surgical History H/O inguinal hernia repair History of appendectomy Social History Smoking Status: Former smoker ROS ROS ED Constitutional Constitutional ED: Denies chills, fever(s) or sweats Eyes Eyes: Denies blurry vision or change in vision ENT ENT ED: Denies ear pain or sore throat Cardiovascular Cardiovascular: Denies chest pain, palpitations or racing heartbeat Respiratory/Chest Respiratory/Chest: Denies cough, dyspnea or sputum Gastrointestinal Gastrointestinal: Denies abdominal pain, constipation, diarrhea, nausea or vomiting Genitourinary Genitourinary ED: Reports other Details: Dark urine ; Denies dysuria, hematuria or urinary frequency Musculoskeletal Musculoskeletal: Denies arthralgias, myalgias or neck pain Integumentary Denies abscess, Abrasions or rash Neurologic Neurologic: Denies headache(s), paresthesias or weakness Psychiatric Psychiatric: Denies anxiety, depression, suicidal ideation or suicidal thoughts Endocrine Endocrinology: Denies polydipsia or polyuria EXAM Physical Exam Const Vital Signs: 05/18/21 16:16 Temperature 97.9 F Temperature Source Temporal Pulse Rate 66 Respiratory Rate 18 Blood Pressure 152/65 H Blood Pressure Mean 94 Pulse Ox 99 Oxygen Delivery Method Room Air Positive well nourished General Appearance ED: NAD; Negative for pallor HEENT Reports moist mucous membranes Negative for trauma Eyes PERRL and EOMs intact bilaterally Neck no lymphadenopathy and supple Resp normal respiratory effort and clear to auscultation bilaterally Cardio regular rate and regular rhythm GI normal to inspection, nondistended, normoactive bowel sounds Back/Spine no CVA tenderness Extremity normal to inspection General Extremety ED: Negative for edema or tenderness General Extremity: Negative for edema Neuro oriented x3 Sensorium / Orientation: alert Psych mental status grossly normal Skin General Skin Exam: Negative for jaundice or pallor MDM MDM MDM Narrative Medical decision making narrative: After patient was evaluated I did see that he had a creatinine on 1230 which was 1.78 which had gone up to 2.13 when they rechecked it. He states he was put on Bactrim for UTI. After reviewing his urinalysis he does not have a urinary tract infection. I believe that likely Bactrim increased his creatinine making it worse. I spoke with Dr. Newton about this from nephrology and she agreed. He is to hold the Bactrim for now. He is to follow-up with Dr. Newton next week for repeat kidney function. He is counseled to hydrate well and stay away from NSAIDs and stop the Bactrim immediately. Kala pantoja is given return precautions. Impression: 1. Acute kidney injury Discharge Plan Triage Chief Complaint: Abn Labs ED Provider: Noe Chan Dx/Rx/DC Orders Clinical Impression: Acute renal insufficiency Prescriptions: No Action sulfamethoxazole-trimethoprim 800-160 mg tablet 1 tab PO BID RF: 0 Primary Care Provider: Jaya Sue Referrals: Wendi Newton DO [STAFF PHYSICIAN] - As soon as possible Jaya Sue MD [Primary Care Provider] - Disposition Disposition: Home, Self Care
[2021-05-18 18:17] VITALS: BP 174/67; RESP 16; O2SAT 99
== END 2021-05-18 18:18 | disposition home or self-care (01) ==
PROVIDERS: Emergency Provider Student in an Organized Health Care Education/Training Program; PCP Family Medicine
DX: N17.9 Acute kidney failure, unspecified (principal); Z87.891 Personal history of nicotine dependence
CPT/HCPCS: 36415; 80053; 85652; 99283; A4216

== ENCOUNTER 2021-05-23 11:31 | Outpatient (CLI) | payer MEDICARE, SELFPAY ==
[2021-05-23 12:43] LABS: Albumin, Serum 3.1 g/dL (3.2-5.0); BUN 21 mg/dL (7-18); BUN/Creat Ratio 11.9 RATIO (10-20); Calcium,Total 8.8 mg/dL (8.5-10.1); Chloride 108 mmol/L (98-107); Creatinine, Serum 1.76 mg/dL (0.70-1.30); EST Glomerular Filtration Rate 41 mL/min (>60); Est Glom Filt Rate - Afr Amer 49 mL/min (>60); Glucose 87 mg/dL (74-106); Phosphorus 2.5 mg/dL (2.5-4.9); Potassium 4.4 mmol/L (3.5-5.1); Sodium Level 142 mmol/L (136-145)
[2021-05-23 12:45] LABS: Protein:Creat Ratio 1769 mg/g CRE (0-200)
== END 2021-05-23 23:59 | disposition short-term general hospital (02) ==
LOC: US 11:32
PROVIDERS: PCP Family Medicine; Visit Provider Internal Medicine Nephrology
DX: N17.9 Acute kidney failure, unspecified (principal); N18.32 Chronic kidney disease, stage 3b; N39.0 Urinary tract infection, site not specified
CPT/HCPCS: 36415; 80069; 82570; 84156; 87086

== ENCOUNTER 2021-05-24 08:50 | Outpatient (CLI) | payer MEDICARE, SELFPAY ==
--- NOTE | 2021-05-24 09:06 | RAD_ITS ---
STUDY: X-RAY - ABDOMEN/PELVIS REASON FOR EXAM: Male, 71 years old. HEMATURIA UNSPECIFIED R31.9 . History of kidney stones. TECHNIQUE: Single AP view of the abdomen / pelvis. COMPARISON: Comparison is made with prior study dated 10/09/2019. FINDINGS: Normal visualized lung bases. There is an abundance of fecal material throughout the colon. The visualized liver, spleen and kidneys are grossly normal in size and morphology. There are calcified phleboliths in the pelvis. Evidence of prior left inguinal hernia repair. There are diffuse degenerative changes of the visualized lumbar spine. RAD/Abdomen Single View IMPRESSION: Large amount of fecal material is seen in the colon. Electronically Signed: Alejandro Del Valle MD at 12:31 EST , Service support ,
== END 2021-05-24 23:59 | disposition short-term general hospital (02) ==
LOC: RAD 08:51
PROVIDERS: PCP Family Medicine; Referring Provider Registered Nurse; Visit Provider Registered Nurse
DX: R31.9 Hematuria, unspecified (principal)
CPT/HCPCS: 74018

== ENCOUNTER 2021-05-31 06:41 | Outpatient (CLI) | payer MEDICARE, SELFPAY ==
--- NOTE | 2021-05-31 06:48 | CT_ITS ---
STUDY: CT ABDOMEN AND PELVIS WITHOUT CONTRAST REASON FOR EXAM: Male, 71 years old. GROSS HEMATURIA. History of kidney stones and prior left inguinal hernia repair. RADIATION DOSAGE (If Supplied By Facility): CTDIvol = ( 6.40 ) mGy, DLP = ( 340.32 ) mGycm TECHNIQUE: Transaxial images were obtained from the dome of the diaphragm to the symphysis pubis without oral contrast, and without intravenous contrast. Sagittal and coronal images were reconstructed. Individualized dose optimization techniques were used for this CT. COMPARISON: Comparison is made with prior study dated 10/03/2019. FINDINGS: New small bilateral pleural effusions with bibasilar atelectasis. Small pericardial effusion. Normal liver. Normal gallbladder and extrahepatic biliary system. Normal spleen. Normal pancreas. There is symmetric enlargement of the adrenal glands suggesting adrenal hyperplasia. Normal right kidney. 2 mm calculus in the posterior upper pole calyx of the left kidney. Normal visualized stomach. Normal small intestine. Normal colon. The patient is status post appendectomy. There is scattered atherosclerotic calcification of the abdominal aorta, without a demonstrated aneurysm. Normal inferior vena cava. There is borderline retroperitoneal lymphadenopathy with enlarged nodes no greater than 10mm in the short axis diameter. I suspect a 3.3 cm x 2.3 cm polypoid mass at the base of the bladder. There is enlargement of the prostate gland. The prostate measures 4.9 cm x 4.3 cm. This causes indentation at the bladder base. There is a small umbilical hernia containing fat. There is evidence of prior left inguinal hernia repair. There are diffuse degenerative changes of the visualized lumbar spine. CT/Abdomen/Pelvis without Cont IMPRESSION: I suspect a 3.3 cm x 2.3 cm polypoid mass at the base of the urinary bladder. Endoscopy is recommended. Prostatic enlargement. Small bilateral pleural effusions with bibasilar atelectasis. 2 mm focus in the posterior upper pole calyx of the left kidney. Electronically Signed: Alejandro Del Valle MD at 8:57 EST , Service support ,
== END 2021-05-31 23:59 | disposition short-term general hospital (02) ==
LOC: CT 06:46
PROVIDERS: PCP Family Medicine; Referring Provider Urology; Visit Provider Urology
DX: R31.0 Gross hematuria (principal)
CPT/HCPCS: 74176

== ENCOUNTER 2021-06-13 09:12 | Outpatient (CLI) | payer MEDICARE, SELFPAY ==
[2021-06-13 10:55] LABS: Hematocrit 34.4 % (40-54); Hemoglobin 10.6 g/dL (13.0-16.5); Mean Corp Hgb Conc 30.8 g/dL (32-36); Mean Corpuscular Hgb 25.3 pg (27.0-32.0); Mean Corpuscular Volume 82.1 fL (80-94); Mean Platelet Vol. 10.7 fl (6.2-12.0); Platelet Count 269 K/mm3 (150-450); RBC Distribution Width CV 15.9 % (11.6-14.6); RBC Distribution Width SD 47.9 fl (35.1-43.9); Red Blood Count 4.19 M/mm3 (4.6-6.2); White Blood Count 5.1 K/mm3 (4.4-11.0)
[2021-06-13 11:16] LABS: PTHIN 72.8 pg/mL (18.4-80.1)
[2021-06-13 11:17] LABS: Albumin, Serum 3.1 g/dL (3.2-5.0); BUN 26 mg/dL (7-18); BUN/Creat Ratio 11.7 RATIO (10-20); Calcium,Total 9.1 mg/dL (8.5-10.1); Chloride 108 mmol/L (98-107); Creatinine, Serum 2.22 mg/dL (0.70-1.30); EST Glomerular Filtration Rate 31 mL/min (>60); Est Glom Filt Rate - Afr Amer 38 mL/min (>60); Glucose 84 mg/dL (74-106); Phosphorus 2.6 mg/dL (2.5-4.9); Potassium 3.9 mmol/L (3.5-5.1); Sodium Level 140 mmol/L (136-145)
[2021-06-14 17:07] LABS: Cytoplasmic Ab (C-ANCA) <1:20 titer (Neg:<1:20)
[2021-06-14 21:46] LABS: Perinuclear Ab (P-ANCA) <1:20 titer (Neg:<1:20)
[2021-06-14 22:28] LABS: Anti-Nuclear Antibody Test Negative (.)
== END 2021-06-13 23:59 | disposition short-term general hospital (02) ==
LOC: LAB 09:16
PROVIDERS: PCP Family Medicine; Referring Provider Internal Medicine Nephrology; Visit Provider Internal Medicine Nephrology
DX: N18.32 Chronic kidney disease, stage 3b (principal); R31.9 Hematuria, unspecified
CPT/HCPCS: 36415; 80069; 83970; 85027; 86038; 86256

== ENCOUNTER 2021-06-26 11:36 | Outpatient (CLI) | payer MEDICARE, SELFPAY ==
[2021-06-26 14:16] LABS: Albumin, Serum 3.3 g/dL (3.2-5.0); BUN 30 mg/dL (7-18); BUN/Creat Ratio 9.7 RATIO (10-20); Calcium,Total 8.9 mg/dL (8.5-10.1); Chloride 105 mmol/L (98-107); Creatinine, Serum 3.09 mg/dL (0.70-1.30); EST Glomerular Filtration Rate 21 mL/min (>60); Est Glom Filt Rate - Afr Amer 26 mL/min (>60); Glucose 106 mg/dL (74-106); Phosphorus 2.5 mg/dL (2.5-4.9); Sodium Level 141 mmol/L (136-145)
== END 2021-06-26 23:59 | disposition home or self-care (01) ==
LOC: POLAB3 11:38
PROVIDERS: PCP Family Medicine; Visit Provider Internal Medicine Nephrology
DX: N17.9 Acute kidney failure, unspecified (principal)
CPT/HCPCS: 36415; 80069

== ENCOUNTER 2021-06-29 10:52 | Day surgery (SDC) | payer MEDICARE, SELFPAY ==
--- NOTE | 2021-06-26 08:43 | EKG12_ITS ---
Test Reason : PREOP Blood Pressure : / mmHG Vent. Rate : 070 BPM Atrial Rate : 070 BPM P-R Int : 116 ms QRS Dur : 106 ms QT Int : 428 ms P-R-T Axes : 072 093 068 degrees QTc Int : 462 ms Normal sinus rhythm Poor R wave progression Confirmed by LUÍS BARRETO, MARICARMEN ([id number]), publishing editor MAKENNA CALDERON ([id number]) on 06/27/2021 9:39:05 AM Referred By: Kenny Mcelroy Confirmed By:MARICARMEN STALEY MD
[2021-06-29] VITALS (9 sets, daily range): BP systolic 142–164; BP diastolic 47–70; PULSE 58–70; RESP 16–18; TEMP 36.4–37.3; O2SAT 58–98; BMI 23.7
--- NOTE | 2021-06-29 | PROS_PTH ---
PATIENT: ТАТЬЯНА SOLIS LOC: [facility] U#:[id number] AGE/SX: 71/M ROOM: RE06/29/[address]: Dr. Kenny Mcelroy MD : 1950 BED: DIS: 06/30/2021 SPEC #: [id number] RECD: 06/29/21 14:47 STATUS: RUIZ SANDERSON #: [id number] JIMMY: 06/29/21 00:[address]: Kenny Mcelroy DEPT: SURGICAL PATHOLOGY RECD BY: Nicolas Rosales ENTERED: 07/02/21 11:05 SP TYPE: TURP OTHR DR: Dr. Jaya Sue MD Tissues: Prostate, NOS Procedures: Surgery Specimen Level IV HEADER OPERATION: Cysto, TUR prostate, Olympus PRE-OP DIAGNOSIS: BPH with lower urinary tract symptoms; gross hematuria; calculus of kidney TISSUE SUBMITTED: Prostate tissue MICROSCOPIC DIAGNOSIS Prostate tissue, TUR: Benign prostatic hyperplasia, glandular and stromal type. Focal chronic inflammation. BRAD:maddy 07/03/2021 MICROSCOPIC DESCRIPTION Slides are reviewed. GROSS DESCRIPTION Received is one container labeled with the patient's name and designated prostate tissue. The specimen consists of multiple irregular fragments of pink-aquino, rubbery, soft tissue that in aggregate weigh 11.6 gm and measure in aggregate 4 x 4 x 2 cm. The entire specimen is submitted in ten cassettes. / BRAD:maddy 07/02/2021 TC:5 CPT: 24233
[2021-06-29] MEDS: Lactated Ringers 1,000 ML 15 ML IV ×2 (11:23→15:00)
[2021-06-29] MEDS: Cefazolin 2 GM in 0.9% Normal Saline 100 ML IV (13:21)
--- NOTE | 2021-06-29 14:22 | OP.PCM_ITS ---
Report of Operation Date of Procedure: 06/29/21 Pre-Operative Diagnosis: BPH with obstruction Post-Operative Diagnosis: Same Surgery/Procedure Performed:: Transurethral section of prostate Description of Surgical Findings:: In the preoperative setting I discussed with the patient how the surgery would be done with expect afterwards. We discussed how a prostate resection is done and we discussed the risk of the surgery including, bleeding, infection, retrograde ejaculation, changes with ejaculation or intercourse,. We discussed the possibility that the resection of the prostate may not alleviate his urinary symptoms. We discussed the small risk of developing scar tissue along the urethral channel and strictures. We also discussed the chance of the prostate could grow back and he may need further surgery or treatment in the future for prostate problems. Patient was taken back to the operating room, timeout procedure was performed, he was identified and marked and placed on the operating room table. He underwent general anesthesia. He was placed in dorsolithotomy position. Penis and testicles were prepped and draped in usual sterile fashion. Went into the bladder using the visual obturator with a resectoscope. Once inside the bladder identified the right and left ureteral orifice. I then identified the prostate and the anatomy of the prostate. I marked out the area of the sphincter and the verumontanum was identified. I then proceeded with the prostate resection first resected the median lobe. And then resected the right lobe of the prostate. Then to resect the left lobe of the prostate. I then resected the apical tissue of the prostate. This was a complete resection of all obstructive tissue to improve voiding and relieve obstruction. I then made sure that there was no injury to the sphincter or the verumontanum was still intact. At the end of the resection all the chips were Ellik out of the bladder. I then identified the left and right ureteral orifice and these were confirmed to be in good position and effluxing and not injured. The resectoscope was removed, a 22 Vietnamese catheter was placed into the bladder on continuous irrigation. And the urine was fairly light pink color and draining normally. He was taken back to the PACU in good condition. CPT 86938 Surgeon: Lilibeth Type of Anesthesia: General Admit VTE Documentation VTE Present on Admission: No VTE Mechan Device Prophylaxis: SCD's and None
--- NOTE | 2021-06-29 14:22 | PCM.HP.STD ---
HPI - General HPI Narrative ТАТЬЯНА SOLIS, is a 71 M who presents transurethral resection of the prostate for BPH with obstruction PFSH Medical History Alcohol use Arthritis Bladder disease Former smoker Hearing difficulty History of kidney stones History of renal disease History of stress test Renal calculi Restless legs Wears dentures Wears glasses Allergy/AdvReac Type Severity Reaction Status Date / Time No Known Allergies Allergy Verified 06/29/21 11:09 Surgical History H/O inguinal hernia repair History of appendectomy History of colonoscopy Social History Smoking Status: Former smoker Vital Signs Vital Signs Vital Signs: 06/29/21 11:23 Temperature 99.1 F Temperature Source Temporal Pulse Rate 65 Respiratory Rate 16 Respiratory Pattern Normal Blood Pressure 152/64 H Blood Pressure Mean 93 Blood Pressure Source Monitor Blood Pressure Position Semi-Fowlers Blood Pressure Location Right Arm Pulse Ox 98 Oxygen Delivery Method Room Air Weight Weight: 75 kg Body Mass Index (BMI) 23.7
--- NOTE | 2021-06-29 14:22 | PCM.DC ---
Discharge Instructions Diet Discharge Diet: No restrictions Activity Discharge Activity: Return to Normal Activity and May Not Drive (while taking narcotic pain medications.) Dressing / Incision Call your doctor if you observe: Fever of 101 or Higher Follow Up Care Please Follow Up With: Kenny Mcelroy MD When: Call [phone] for an appointment Test Results: Test results from this visit will be discussed in further detail at your follow-up appointment, if applicable. Discharge Plan Admission Primary Reason for Your Visit: turp Attending Provider: Kenny Mcelroy Primary Care Provider: Jaya Sue Instructions Patient Instructions: TURP Home Recovery Discharge Orders/Prescriptions Prescriptions: Discontinued tamsulosin 0.4 mg capsule 0.4 mg PO DAILY RF: 0 Referrals / Follow Up: Kenny Mcelroy MD [STAFF PHYSICIAN] - Jaya Sue MD [Primary Care Provider] - Disposition Disposition (needs filled in before D/C Order can be placed): Home, Self Care
[2021-06-29] MEDS: Docusate Sodium 100 MG Capsule PO ×2 (17:17→21:31)
[2021-06-29] MEDS: Ciprofloxacin 500 MG Tablet PO (21:31)
[2021-06-30 02:25] VITALS: BP 133/67; PULSE 59; RESP 18; TEMP 36.8; O2SAT 94
[2021-06-30 06:30] VITALS: BP 142/63; PULSE 63; RESP 16; TEMP 36.5; O2SAT 95
--- NOTE | 2021-06-30 08:11 | PCM.PN.GU ---
Subjective Subjective Status post TURP for BPH with obstruction he can have the catheter removed this morning after he is able to urinate and go home without a catheter. Objective Data Objective Data Vital Signs: Vital Signs Temp Pulse Resp BP Pulse Ox 97.7 F L 63 16 142/63 H 95 06/30/21 06:30 06/30/21 06:30 06/30/21 06:30 06/30/21 06:30 06/30/21 06:30 Oxygen Delivery Method Room Air Weight: 75 kg Body Mass Index (BMI) 23.7 Intake & Output: Intake and Output for Last 24 Hours 06/28/21 06/29/21 06/30/21 23:59 23:59 23:59 Intake Total 1360 / 1360 500 / 500 Output Total 1450 / 1450 200 / 200 Balance -90 / -90 300 / 300 Lab / Micro Data Micro: Microbiology 06/26/21 08:51 Interface Orders SARS-CoV-2 Antigen (Rapid) - Final
[2021-06-30] MEDS: Ciprofloxacin 500 MG Tablet PO (10:31)
[2021-06-30] MEDS: Docusate Sodium 100 MG Capsule PO (10:31)
[2021-06-30 13:55] VITALS: BP 159/68; PULSE 65; RESP 16; TEMP 36.7; O2SAT 96
== END 2021-06-30 16:29 | disposition home or self-care (01) ==
LOC: SDC 10:58 → AC 10:58 → MS3 07-02 11:51
PROVIDERS: PCP Family Medicine; Referring Provider Urology; Visit Provider Urology
PROC: (CPT 52601; principal; 2021-06-29 13:05)
DX: N40.1 Benign prostatic hyperplasia with lower urinary tract symptoms (principal); Z87.891 Personal history of nicotine dependence; Z87.442 Personal history of urinary calculi; H91.90 Unspecified hearing loss, unspecified ear; Z87.19 Personal history of other diseases of the digestive system; Z90.49 Acquired absence of other specified parts of digestive tract; N28.9 Disorder of kidney and ureter, unspecified; Z23 Encounter for immunization
CPT/HCPCS: 52601; 00914; 87426; 88305; 93005; C9803; G0008; J7120; 90686; J2405

== ENCOUNTER 2021-06-30 23:15 | Emergency (ER) | payer MEDICARE, SELFPAY ==
[2021-06-30 23:16] VITALS: BP 185/81; PULSE 76; RESP 18; TEMP 36.5; O2SAT 99; BMI 23.8
[2021-06-30] MEDS: Lidocaine Jelly 2% 20 ML Syringe (URO-JET) 1 APPLIC TOPICAL (23:43)
--- NOTE | 2021-07-01 00:32 | EX.ED.DYSGE1 ---
HPI History of Present Illness Chief Complaint: Complaint Narrative Narrative: Patient is a 71-year-old male who states yesterday he had his prostate shaved. He states that he was able to urinate on his own afterwards so a Tristan catheter was not placed. He states he was doing well today but approximately 8 PM noticed he was having some abdominal discomfort and could not urinate since that time. He states he talked with his urologist who advised him to come to the hospital for catheter placement and therefore patient presents for evaluation. Patient denies any fevers or chills he denies any dysuria or blood thinner use. [facility] Medical History (Updated 07/01/21 @ 00:[address] Errol Shah DO) Alcohol use Arthritis Bladder disease Former smoker Hearing difficulty History of kidney stones History of renal disease History of stress test Renal calculi Restless legs Wears dentures Wears glasses Home Medications NK 06/30/21 [History Last Taken Unknown] Allergy/AdvReac Type Severity Reaction Status Date / Time No Known Allergies Allergy Verified 06/30/21 23:17 Surgical History H/O inguinal hernia repair History of appendectomy History of colonoscopy Social History Smoking Status: Former smoker ROS ROS ED Constitutional Constitutional ED: Denies chills or fever(s) ENT ENT ED: Denies sore throat Cardiovascular Cardiovascular: Denies chest pain Respiratory/Chest Respiratory/Chest: Denies cough or dyspnea Gastrointestinal Gastrointestinal: Reports abdominal pain; Denies diarrhea, nausea or vomiting Genitourinary Genitourinary ED: Reports hematuria and other Details: Positive urinary retention ; Denies dysuria Musculoskeletal Musculoskeletal: Denies back pain or myalgias Integumentary Denies rash Neurologic Neurologic: Denies headache(s) Hematologic/Lymphatic Hematologic/Lymphatic: Denies easy bleeding or easy bruising EXAM Physical Exam Const Vital Signs: 06/30/21 23:16 Temperature 97.7 F L Temperature Source Temporal Pulse Rate 76 Respiratory Rate 18 Blood Pressure 185/81 H Blood Pressure Mean 115 Pulse Ox 99 Oxygen Delivery Method Room Air Positive well nourished and well developed General Appearance ED: well developed Eyes PERRL and EOMs intact bilaterally Neck supple Resp normal respiratory effort and clear to auscultation bilaterally Cardio regular rate and regular rhythm GI GI Narrative: Patient has mild distention with pain with palpation in the midline of the lower abdomen with organomegaly present consistent with a distended bladder. Otherwise no voluntary guarding or rigidity no pulsatile mass. Auscultation: normoactive bowel sounds Palpation: soft Narrative: No blood or discharge from the urethral meatus no testicular swelling or masses no overlying soft tissue changes to suggest Uriah's gangrene Back/Spine no CVA tenderness Extremity normal to inspection Neuro oriented x3 and CN's II-XII intact bilaterally Sensorium / Orientation: alert Psych mental status grossly normal Skin no rashes or lesions noted MDM MDM MDM Narrative Medical decision making narrative: Patient presented to the ER hypertensive but otherwise stable vitals with a history and exam consistent with acute urinary retention. Is only been a few hours since his symptoms I do not feel there is need for basic blood work. A catheter was placed and drained approximately 600 mL of urine and patient reported feeling better and his abdominal distention resolved. Therefore at this time with resolution of his symptoms a catheter will be kept in place to ensure he does not develop acute retention once again and he can be discharged home and follow-up with urology for repeat evaluation. Discharge Plan Triage Chief Complaint: Complaint ED Provider: Errol Shah Dx/Rx/DC Orders Clinical Impression: Acute urinary retention Instructions: ED Tristan Catheter, Care, ED Urinary Retention, Male Prescriptions: No Action NK RF: 0 Primary Care Provider: Jaya Sue Referrals: Kenny Mcelroy MD [STAFF PHYSICIAN] - 3-5 Days Jaya Sue MD [Primary Care Provider] - Disposition Disposition: Home, Self Care
[2021-07-01 00:58] VITALS: BP 151/79; PULSE 74; RESP 16; O2SAT 97
== END 2021-07-01 00:58 | disposition home or self-care (01) ==
PROVIDERS: Emergency Provider Emergency Medicine; PCP Family Medicine; Visit Provider Emergency Medicine
DX: R33.9 Retention of urine, unspecified (principal); R10.9 Unspecified abdominal pain; Z87.891 Personal history of nicotine dependence; Z87.442 Personal history of urinary calculi
CPT/HCPCS: 51702; 99283

== ENCOUNTER 2021-08-09 10:32 | Outpatient (CLI) | payer MEDICARE, SELFPAY ==
[2021-08-09 11:39] LABS: Albumin, Serum 3.5 g/dL (3.2-5.0); BUN 30 mg/dL (7-18); BUN/Creat Ratio 13.6 RATIO (10-20); Calcium,Total 9.1 mg/dL (8.5-10.1); Chloride 106 mmol/L (98-107); Creatinine, Serum 2.21 mg/dL (0.70-1.30); EST Glomerular Filtration Rate 31 mL/min (>60); Est Glom Filt Rate - Afr Amer 38 mL/min (>60); Glucose 122 mg/dL (74-106); Phosphorus 2.7 mg/dL (2.5-4.9); Sodium Level 140 mmol/L (136-145)
== END 2021-08-09 23:59 | disposition home or self-care (01) ==
PROVIDERS: PCP Family Medicine; Visit Provider Internal Medicine Nephrology
DX: N18.32 Chronic kidney disease, stage 3b (principal)
CPT/HCPCS: 36415; 80069

== ENCOUNTER → 2021-11-22 | Outpatient (CLI) | payer MEDICARE, SELFPAY ==
[2021-11-22 11:12] LABS: Albumin, Serum 3.8 g/dL (3.2-5.0); BUN 27 mg/dL (7-18); BUN/Creat Ratio 16.2 RATIO (10-20); Calcium,Total 9.4 mg/dL (8.5-10.1); Chloride 110 mmol/L (98-107); Creatinine, Serum 1.67 mg/dL (0.70-1.30); EST Glomerular Filtration Rate 43 mL/min (>60); Est Glom Filt Rate - Afr Amer 52 mL/min (>60); Glucose 123 mg/dL (74-106); Phosphorus 2.3 mg/dL (2.5-4.9); Potassium 4.2 mmol/L (3.5-5.1); Sodium Level 141 mmol/L (136-145)
== END | disposition home or self-care (01) ==
LOC: LAB 09:42
PROVIDERS: PCP Family Medicine; Visit Provider Internal Medicine Nephrology
DX: N17.9 Acute kidney failure, unspecified (principal)
CPT/HCPCS: 36415; 80069

== ENCOUNTER 2022-01-24 10:35 | Emergency (ER) | payer MEDICARE, SELFPAY ==
[2022-01-24 10:36] VITALS: BP 162/49; PULSE 63; RESP 14; TEMP 36.8; O2SAT 100; BMI 23.2
--- NOTE | 2022-01-24 10:49 | CT_ITS ---
STUDY: CT BRAIN WITHOUT CONTRAST REASON FOR EXAM: Male, 71 years old. Dizziness RADIATION DOSAGE (If Supplied By Facility): CTDIvol = ( 44.99 ) mGy, DLP = ( 762.36 ) mGycm TECHNIQUE: Transaxial CT imaging of the brain was performed without administration of intravenous contrast material. Individualized dose optimization techniques were used for this CT. COMPARISON: No relevant priors. FINDINGS: Normal soft tissue structures. Normal calvarium. There is mild cerebral atrophy with widening of the extra-axial spaces and ventricular dilatation. There are areas of decreased attenuation within the white matter tracts of the supratentorial brain, consistent with microvascular disease changes. Normal basal ganglia and thalami. Normal brainstem. Normal cerebellum. There is no intracranial hemorrhage. There are no findings of an acute ischemic infarction. Atherosclerotic calcific plaques of the cavernous portions of the internal carotid arteries bilaterally. Normal visualized paranasal sinuses. CT/Brain/Head without Contrast IMPRESSION: Chronic involutional changes of the brain. Electronically Signed: Alejandro Dle Valle MD at 12:02 EDT ,
--- NOTE | 2022-01-24 10:49 | EKG12_ITS ---
Test Reason : DIZZINESS Blood Pressure : / mmHG Vent. Rate : 051 BPM Atrial Rate : 051 BPM P-R Int : 164 ms QRS Dur : 108 ms QT Int : 468 ms P-R-T Axes : 069 -04 250 degrees QTc Int : [address] & T wave abnormality, consider anterolateral ischemia Abnormal ECG Confirmed by DIANNA BARRETO, LEON ([id number]), staff editor MAKENNA CALDERON ([id number]) on 01/28/2022 10:42:20 AM Referred By: TROY Confirmed By:LEON BUSTAMANTE MD
--- NOTE | 2022-01-24 10:50 | RAD_ITS ---
STUDY: X-RAY CHEST REASON FOR EXAM: Male, 71 years old. Chest pain TECHNIQUE: Single AP portable view of the chest. COMPARISON: None. FINDINGS: EKG electrodes are seen. Hyperinflation. The lungs are clear. There is no demonstrated pleural abnormality. Normal size heart. Normal mediastinum and meghan. Normal visualized pulmonary arteries. Normal visualized aortic arch and descending thoracic aorta. Normal visualized thoracic spine. Normal visualized ribs, clavicles, and shoulders. There is no demonstrated abnormality of the visualized soft tissue structures of the upper abdomen. RAD/Chest 1 View (Portable) IMPRESSION: Hyperinflation. The lungs are clear. Electronically Signed: Alejandro Del Valle MD at 11:15 EDT ,
--- NOTE | 2022-01-24 10:50 | EDS_ITS ---
HPI History of Present Illness Chief Complaint: Dizziness Narrative Narrative: 71-year-old male presenting with dizziness. Patient describes as vertiginous. He woke up from sleep and set up with a dizziness symptoms getting worse. He states that he did vomit. He states he sat for about 15 minutes and his family had help him downstairs. He states that this is now improving he still feels it mildly. He denies history of vertigo. He denies visual complaints, slurred speech, facial droop, unilateral weakness, paresthesias. Denies headache. PFSH PFSH Medical History Alcohol use Arthritis Bladder disease Former smoker Hearing difficulty History of kidney stones History of renal disease History of stress test Renal calculi Restless legs Wears dentures Wears glasses Home Medications meclizine 25 mg chewable tablet 25 mg PO TID PRN dizziness #30 tabs 01/24/22 [Rx Last Taken Unknown] Allergy/AdvReac Type Severity Reaction Status Date / Time No Known Allergies Allergy Verified 01/24/22 10:36 Surgical History H/O inguinal hernia repair History of appendectomy History of colonoscopy Social History Smoking Status: Former smoker ROS ROS ED Constitutional Constitutional ED: Denies chills or fever(s) Eyes Eyes: Reports other Details: Vertiginous dizziness ; Denies change in vision ENT ENT ED: Denies ear pain Cardiovascular Cardiovascular: Denies chest pain or palpitations Respiratory/Chest Respiratory/Chest: Denies cough or dyspnea Gastrointestinal Gastrointestinal: Reports nausea and vomiting; Denies abdominal pain Genitourinary Genitourinary ED: Denies dysuria or hematuria Musculoskeletal Musculoskeletal: Denies arthralgias Integumentary Denies abscess or Abrasions Neurologic Neurologic: Denies headache(s) or paresthesias Psychiatric Psychiatric: Denies anxiety or depression EXAM Physical Exam Const Vital Signs: 01/24/22 10:36 01/24/22 11:04 01/24/22 12:54 Temperature 98.2 F Temperature Source Temporal Pulse Rate 63 44 L Respiratory Rate 14 16 Blood Pressure 162/49 H Blood Pressure Mean 86 Pulse Ox 100 99 97 Oxygen Delivery Method Room Air Room Air Room Air 01/24/22 13:10 Temperature Temperature Source Pulse Rate 46 L Respiratory Rate 16 Blood Pressure 171/63 H Blood Pressure Mean 99 Pulse Ox 99 Oxygen Delivery Method Room Air Positive well nourished General Appearance ED: NAD; Negative for pallor HEENT Reports moist mucous membranes HEENT Narrative: Negative [place]-Hallpike on Eyes PERRL and EOMs intact bilaterally Neck no lymphadenopathy Chest Wall inspection of chest normal Resp normal respiratory effort and clear to auscultation bilaterally Auscultation: Negative for rales, rhonchi or wheezes Cardio regular rate and regular rhythm GI normal to inspection, nondistended, normoactive bowel sounds Extremity normal to inspection Neuro oriented x3 and CN's II-XII intact bilaterally Sensorium / Orientation: alert Psych mental status grossly normal Skin no rashes or lesions noted and no wounds General Skin Exam: Negative for jaundice or pallor MDM MDM MDM Narrative Medical decision making narrative: Patient presenting with dizziness which is vertiginous in nature which is actually improved since he has been here. He has a negative [place]-Hallpike. I did give him meclizine because he still stated that he has had some baseline mild dizziness. EKG was performed on my interpretation is a sinus rhythm with a ventricular rate of 51 bpm without sign of ischemic change. His chest x-ray on my interpretation shows no acute cardiopulmonary process and radiologist agree. CBC and BMP are at baseline. High-sensitivity troponin is 7. CT of the brain was obtained and is negative for acute intracranial findings. On reevaluation the patient's dizziness is completely resolved. I suspect this is likely benign positional vertigo. Patient will be given meclizine for home. Return precautions discussed. Impression: 1. Vertigo 2. Nausea/vomiting Lab Data Attestation: I reviewed the patient's lab results. Labs: Laboratory Results - last 24 hr 01/24/22 01/24/22 11:10 11:10 WBC 6.8 RBC 4.34 L Hgb 12.5 L Hct 38.5 L MCV 88.7 MCH 28.8 MCHC 32.5 RDW Std Deviation 42.4 RDW Coeff of Donnie 13.1 Plt Count 225 MPV 10.0 Immature Gran % (Auto) 0.300 Neut % (Auto) 71.8 H Lymph % (Auto) 19.6 [place] % (Auto) 6.4 Eos % (Auto) 1.2 Baso % (Auto) 0.7 Absolute Neuts (auto) 4.9 Absolute Lymphs (auto) 1.34 Nucleated RBC % 0 Sodium 144 Potassium 3.8 Chloride 108 H Carbon Dioxide 28.0 Anion Gap 8 BUN 31 H Creatinine 1.74 H Estim Creat Clear Calc 40.21 Est GFR (MDRD) Af Amer 50 L Est GFR (MDRD) Non-Af 41 L BUN/Creatinine Ratio 17.8 Glucose 104 Calcium 9.4 Troponin I High Sens 7 Radiography Diagnostic Testing: Clinical Impression(s) from Imaging Studies Brain CT 01/24/22 10:49 IMPRESSION: Chronic involutional changes of the brain. Electronically Signed: Alejandro Del Valle MD at 12:02 EDT , Chest X-Ray 01/24/22 10:50 IMPRESSION: Hyperinflation. The lungs are clear. Electronically Signed: Alejandro Del Valle MD at 11:15 EDT , Discharge Plan Triage Chief Complaint: Dizziness ED Provider: Noe Chan Dx/Rx/DC Orders Instructions: ED Vertigo, Unspecified Prescriptions: New meclizine 25 mg tablet,chewable 25 mg PO TID PRN (Reason: dizziness) Qty: 30 0RF Primary Care Provider: Jaya Sue Referrals: Biju Kirkland MD [Med Staff - Active Staff] - 3-5 Days Jaya Sue MD [Primary Care Provider] - Disposition Disposition: Home, Self Care
[2022-01-24 11:04] VITALS: O2SAT 99
[2022-01-24] MEDS: Aspirin 81 MG TAB.CHEW 324 MG PO (11:10)
[2022-01-24 11:19] LABS: Absolute Lymphocyte Count 1.34 X10^3/uL (0.83-4.51); Absolute Neutrophil Count 4.9 X10^3/uL (2.0-7.7); Basophil# 0.05 X10^3/uL; Basophil% 0.7 % (0-1); Eosinophil# 0.08 X10^3/uL; Eosinophils% 1.2 % (0-5); Hematocrit 38.5 % (40-54); Hemoglobin 12.5 g/dL (13.0-16.5); Lymphocyte # 1.34 X10^3/ul (0.83-4.51); Lymphocyte % 19.6 % (19-41); Mean Corp Hgb Conc 32.5 g/dL (32-36); Mean Corpuscular Hgb 28.8 pg (27.0-32.0); Mean Corpuscular Volume 88.7 fL (80-94); Monocyte# 0.44 X10^3/uL; Monocyte% 6.4 % (0-10); NRBC Flagged by Analyzer 0 % (0-5); Neutrophil # 4.91 X10^3/uL (2.7-7.7); Neutrophil % 71.8 % (47-70); Platelet Count 225 K/mm3 (150-450); RBC Distribution Width CV 13.1 % (11.6-14.6); RBC Distribution Width SD 42.4 fl (35.1-43.9); Red Blood Count 4.34 M/mm3 (4.6-6.2); White Blood Count 6.8 K/mm3 (4.4-11.0)
[2022-01-24 11:36] LABS: Anion Gap 8 (5-15); BUN 31 mg/dL (7-18); BUN/Creat Ratio 17.8 RATIO (10-20); Calcium,Total 9.4 mg/dL (8.5-10.1); Chloride 108 mmol/L (98-107); Creatinine, Serum 1.74 mg/dL (0.70-1.30); EST Glomerular Filtration Rate 41 mL/min (>60); Est Glom Filt Rate - Afr Amer 50 mL/min (>60); Estimated Creatinine Clearance 40.21 ml/min; Glucose 104 mg/dL (74-106); Potassium 3.8 mmol/L (3.5-5.1); Sodium Level 144 mmol/L (136-145); Troponin-I HS 7 pg/mL (3.0-78.0)
[2022-01-24] MEDS: Meclizine HCl 25 MG Tablet PO (11:42)
[2022-01-24 12:54] VITALS: PULSE 44; RESP 16; O2SAT 97
[2022-01-24 13:10] VITALS: BP 171/63; PULSE 46; RESP 16; O2SAT 99
[2022-01-24 15:00] VITALS: BP 162/59; PULSE 50; RESP 12; O2SAT 95
== END 2022-01-24 15:05 | disposition home or self-care (01) ==
PROVIDERS: Emergency Provider Student in an Organized Health Care Education/Training Program; PCP Family Medicine; Visit Provider Student in an Organized Health Care Education/Training Program
DX: R11.2 Nausea with vomiting, unspecified (principal); R42 Dizziness and giddiness; Z87.891 Personal history of nicotine dependence; Z87.442 Personal history of urinary calculi
CPT/HCPCS: 70450; 71045; 80048; 84484; 85025; 93005; 99285; A4216

== ENCOUNTER → 2022-07-04 | Outpatient (CLI) | payer MEDICARE, SELFPAY ==
[2022-07-04 10:16] LABS: Albumin, Serum 3.4 g/dL (3.2-5.0); BUN 29 mg/dL (7-18); BUN/Creat Ratio 18.2 RATIO (10-20); Chloride 109 mmol/L (98-107); Creatinine, Serum 1.59 mg/dL (0.70-1.30); EST Glomerular Filtration Rate 46 mL/min (>60); Est Glom Filt Rate - Afr Amer 55 mL/min (>60); Glucose 97 mg/dL (74-106); Phosphorus 2.5 mg/dL (2.5-4.9); Sodium Level 142 mmol/L (136-145)
== END | disposition home or self-care (01) ==
LOC: LAB 09:20
PROVIDERS: PCP Family Medicine; Referring Provider Internal Medicine Nephrology; Visit Provider Internal Medicine Nephrology
DX: N18.32 Chronic kidney disease, stage 3b (principal)
CPT/HCPCS: 36415; 80069

== ENCOUNTER → 2022-11-14 | Outpatient (CLI) | payer MEDICARE, SELFPAY ==
[2022-11-14 11:40] LABS: PSA,Total - Annual Screen 0.79 ng/mL (0.00-4.00)
== END | disposition home or self-care (01) ==
LOC: LAB 10:05
PROVIDERS: PCP Family Medicine; Referring Provider Urology; Visit Provider Urology
DX: Z12.5 Encounter for screening for malignant neoplasm of prostate (principal)
CPT/HCPCS: 36415; 84153; G0103

== ENCOUNTER → 2023-06-30 | Outpatient (CLI) | payer MEDICARE, SELFPAY ==
--- OUTSIDE RECORDS SUMMARY | 2023-06-30 11:06 | XMS RPT_ITS | CCD ---
Author Name Unknown Address [address] [place] [address] Organization [facility] Care Team Providers Care Director [employer] Name Role Phone Rober Sue MD Primary Care Provider ROBER SUE Primary Care Unavailable ROBER SUE Referring Unavailable ROBER SUE Attending Unavailable ROBER SUE Primary Care Unavailable ROBER SUE Referring Unavailable ROBER SUE Primary Care Unavailable Rober Sue MD Primary Care Provider [phone] Medications Completed/Discontinued Medications Medication Drug Class(es) Dates Sig (Normalized) Sig (Original) meloxicam 15 mg oral tablet (7 sources) Nonsteroidal Anti-inflammatory Drug Start: 10-02-2020 take 1 tablet by mouth once daily meloxicam (MOBIC) 15 mg tablet Take 1 tablet by mouth once daily. 30 tablet 1 10/02/2020 Active Problems Active Problems Problem Classification Problem Date Documented Da te Episodic/Chronic Aortic; peripheral; and visceral artery aneurysms (4 sources) Abdominal aortic aneurysm without rupture; Translations: [Abdominal aortic aneurysm (AAA) without rupture] Onset: 11-21-2022 11-21-2022 Chronic Chronic kidney disease (6 sources) Chronic kidney disease stage 3B ; Translations: [Stage 3b chronic kidney disease (HCC)] Onset: 11-20-2022 Chronic Chronic kidney disease (1 source) Chronic kidney disease; Translations: [Stage 3b chronic kidney disease (HCC)] Onset: 11-20-2022 Hyperplasia of prostate (6 sources) Benign prostatic hyperplasia; Translations: [Benign prostatic hyperplasia without lower urinary tract symptoms] Onset: 11-20-2022 Chronic Other circulatory disease (8 sources) Disorder of aorta; Translations: [Other specified disorders of arteries and arterioles] Onset: 07-24-2020 07-24-2020 Chronic Other circulatory disease (1 source) Other specified disorders of arteries and arterioles; Translations: [Enlarged aorta (HCC)] Onset: 07-24-2020 Chronic Other screening for suspected conditions (not mental disorders or infectious disease) (5 sources) Patient encounter status; Translations: [Encounter for screening for lipoid disorders] Onset: 11-21-2022 Episodic Past or Other Problems Problem Classification Problem Date Documented Da te Episodic/Chronic Calculus of urinary tract (7 sources) Kidney stone; Translations: [Calculus of kidney] Onset: 12-05-2008 12-05-2008 Episodic Other skin disorders (7 sources) Sebaceous cyst of skin; Translations: [Sebaceous cyst] Onset: 09-05-2008 09-05-2008 Episodic Spondylosis; intervertebral disc disorders; other back problems (7 sources) Low back pain; Translations: [Lumbago] Onset: 03-23-2009 03-23-2009 Episodic Results Test Name Value Interpretation Reference Range Facil ity Vital Signs Date Time Vital Sign Value Performing Clinician Faci lity 11-20-2022 08:30-0400 Diastolic blood pressure 68 mm[Hg] Rober Sue MD Work Phone: [facility] 11-20-2022 08:30-0400 Systolic blood pressure 136 mm[Hg] Rober Sue MD Work Phone: [facility] 11-20-2022 07:56-0400 Body height 177.8 cm Rober Sue MD Work Phone: [facility] 11-20-2022 07:56-0400 Body weight 72.58 kg Rober Sue MD Work Phone: [facility] 11-20-2022 07:56-0400 Heart rate 66 /min Rober Sue MD Work Phone: [facility] 11-20-2022 07:56-0400 Respiratory rate 16 /min Rober Sue MD Work Phone: [facility] 11-20-2022 07:56-0400 SaO2% (BldA) [Mass fraction] 99 % Rober Sue MD Work Phone: [facility] Encounters Encounter Date Encounter Type Care Provider Facility Start: 11-25-2022 Telephone encounter Rober Sue MD Work Phone: [facility] Procedures Date Procedure Procedure Detail Performing Clinician Start: 11-23-2022 Lipid 1996 panel - S marquis or Plasma Us 1 Work Phone: Start: 11-21-2022 Us retroperitoneal r eal time w/image limited Rober Sue MD Work Phone: Start: 03-30-2018 Adult depression scr eening assessment Lilibeth Olmos MA Start: 06-11-2017 Colonoscopy Lilibeth Olmos MA Plan of Treatment Date Care Activity Detail Author Start: 11-24-2027 Lipid 1996 panel - S marquis or Plasma Lipid Screening [facility] Start: 11-24-2027 LIPID SCREEN LIPID SCREEN [facility] Start: 06-11-2027 Colonoscopy COLONOSCOPY [facility] Start: 06-11-2027 COLORECTAL CANCER SCREENING COLORECTAL CANCER SCREENING [facility] Start: 11-23-2025 DIABETES SCREEN DIABETES SCREEN [facility] Start: 11-23-2025 Diabetes Screening Diabetes Screenin g [facility] Start: 07-20-2025 LIPID SCREEN LIPID SCREEN [facility] Start: 05-17-2024 DIABETES SCREEN DIABETES SCREEN [facility] Start: 11-24-2023 HEMOGLOBIN/HEMATOCRIT HEMOGLOBIN/HEM ATOCRIT [facility] Start: 11-24-2023 SERUM CREATININE SERUM CREATININE [facility] Start: 11-21-2023 ANNUAL PCP TEAM AIRPLANE PATROLLER NOAH DISEASE VISIT ANNUAL PCP TEAM CHRONIC DISEASE VISIT [facility] Start: 11-21-2023 SHINGRIX VACCINE (1 of 2) SHINGRIX V ACCINE (1 of 2) [facility] Immunizations Immunization Date Immunization Notes Care Provider Fa tanvity 06-30-2021 influenza, seasonal, injectable, preservative free Rober Sue MD Work Phone: [facility] 06-30-2021 influenza virus vacc ine, unspecified formulation Us 1 Work Phone: [facility] 07-19-2020 influenza, high-dose , quadrivalent vaccine (FLUZONE HIGH DOSE QUADRIVALENT) Lilibeth Olmos MA [facility] 03-02-2019 influenza, high dose seasonal, preservative-free Lilibeth Olmos MA [facility] 03-10-2018 influenza, high dose seasonal, preservative-free Lilibeth Olmos MA [facility] Work Phone: 03-26-2017 pneumococcal polysaccharide vaccine, 23 valent Lilibeth Marroquinjovita SELLERS [facility] 03-02-2017 influenza, seasonal, injectable Lilibeth Marroquinjovita SELLERS [facility] 06-05-2015 pneumococcal conjuga te vaccine, 13 valent Lilibeth Olmos MA [facility] 03-02-2015 influenza, seasonal, injectable Lilibeth Olmos VERITO [facility] 12-05-2008 tetanus toxoid, redu zelda diphtheria toxoid, and acellular pertussis vaccine, adsorbed Lilibeth Marroquinjovita SELLERS [facility] Payers Date Payer Category Payer Medicare UHC AAR MEDICAR E UHC AARP MEDICARE HMO [id number] 2020-Present [phone] [address] [address] [place] [address] HMO [id number] 2020 Medicare UHC AARP MEDICAR E UHC AARP MEDICARE HMO [id number] 2020-Present [phone] [address] [address] [place] [address] [facility] [id number] 2020 Medicare [id number] Social History Date Type Detail Facility Start: 06-11-2017 End: 11-20-2022 Tobacco smoking status NHIS Ex-smoker [facility] End: 06-11-1987 History of tobacco use Current smoker [facility] End: 06-11-1987 History of tobacco use Cigarette Smoker [facility] Start: 06-11-2017 End: 11-20-2022 Tobacco use and exposure Smokeless tobacco non-user [facility] Start: 07-02-2021 End: 11-20-2022 Alcohol intake Current drinker of alcohol (finding) [facility] Start: 02-02-2011 History SDOH Alcohol Comment socially/holidays [facility] Start: 1950 Sex Assigned At Not on file [facility] Start: 04-23-2020 End: 07-05-2023 History of Social function [facility] Work Phone: Start: 04-23-2020 End: 11-20-2022 Tobacco use panel [facility] Work Phone: Adult Depression Screening Assessment 0 [facility] Work Phone: Clinical Notes 12-05-2008 to 11-25-2022 Telephone Encounter - Pooja Haynes - 11/25/2022 1:11 PM EDTTelephone Encounter - Rober Sue MD - 11/25/2022 12:31 PM EDTTelephone Encounter - Adamaris Palacios LPN - 11/21/2022 2:27 PM EDT Note Date & Type Note Facility 11-25-2022 Miscellaneous Notes Formattin g of this note might be different from the original. Patient informed and verbalized understanding. Pooja Ivy Let him know his labs are stable. documented in this encounter [facility] 11-21-2022 Miscellaneous Notes Formattin g of this note might be different from the original. Patient notified. Aorta is borderline enlarged in the stomach. Will need to recheck annually documented in this encounter [facility] 11-21-2022 Note HNO ID: [id number] Author: Brandy Fisher RDMS Service: ? Author Type: Spent Grain Dryer Type: Progress Notes Filed: 11/21/2022 2:51 PM Note Text: Radiology Service Progress Note PATIENT NAME: Татьяна Solis DATE OF SERVICE: November 21, 2022 TIME: 2:51 PM PATIENT IDENTITY VERIFICATION COMPLETED USING TWO (2) IDENTIFIERS: Name and Date of confirmed by patient verbally. FALL SCREENING: Has the patient had 2 falls in the last year or 1 fall with injury or currently using an Ambulatory Assistive Device (David Cane, Wheelchair, Crutches, etc.)? No PATIENT GENDER DATA: Male PATIENT RELEVANT IMPLANT DATA REVIEWED: Not Applicable RADIOLOGY DEPARTMENT: Ultrasound PERIPHERAL IV DATA: Not applicable SIGNED BY: Brandy Fisher RDMS RVT November 21, 2022 2:51 PM [facility] 11-21-2022 History of Presen t illness Narrative Radiology Service Progress Note PATIENT NAME: Татьяна Solis DATE OF SERVICE: November 21, 2022 TIME: 2:51 PM PATIENT IDENTITY VERIFICATION COMPLETED USING TWO (2) IDENTIFIERS: Name and Date of confirmed by patient verbally. FALL SCREENING: Has the patient had 2 falls in the last year or 1 fall with injury or currently using an Ambulatory Assistive Device (Walker, Cane, Wheelchair, Crutches, etc.)? No PATIENT GENDER DATA: Male PATIENT RELEVANT IMPLANT DATA REVIEWED: Not Applicable RADIOLOGY DEPARTMENT: Ultrasound PERIPHERAL IV DATA: Not applicable SIGNED BY: Brandy Fisher RDMS RVT November 21, 2022 2:51 PM documented in this encounter [facility] 11-20-2022 Note HNO ID: [id number] Author: Rober Sue MD Service: ? Author Type: Physician Type: Progress Notes Filed: 11/20/2022 8:32 AM Note Text: Татьяна Solis is a 72 year old male here for a Medicare Subsequent Annual Wellness Visit Health Risk Assessment In general, health is: Very good Concerns with balance:Not at all Concerns with teeth or dentures:Not at all Concerns with sexual function:Not at all [place] anxious, stressed, angry, irritable, lonely, isolated, or had thoughts of hurting themself: Not at all Has little interest or pleasure in doing things: Not at all Bothered by feeling down, depressed, or hopeless: Not at all Needs help with grocery shopping, cooking, housework, bathing, grooming, dressing, eating, sitting or standing, walking, using the toilet, handling finances, taking medications, using the telephone, or driving: No Following safety precautions in the home environment and vehicle: removed throw rugs from floors, installed grab bars in the bathroom, handrails in stairwells, having adequate lighting, wearing seatbelt at all times?: No Smokes cigarettes, vapes, or chew tobacco: No Eats healthy foods including fruits, vegetables, whole grains, and fiber-rich foods: Nearly every day Number of days per week engages in exercise: 6 days Average alcohol consumption: Monthly or less Current Providers Specialists: I have reviewed specialist-related care of the patient in the medical record. Outside specialists seen: Dr Mcelroy, urology and Dr Newton, nephrology Medical/Family history review Reviewed and updated problem list, medical history, surgical history, family history, social history, medication list, and allergies. Opioid use review Patient is currently using opioids. Depression screening Depression Screening PHQ-2 Score 11/20/2022 0 Depression screening tool completed and reviewed. Based on score and interview, patient is not at risk for depression. Screening tool discussed with patient, and I recommended no further intervention at this time. Cognitive screening Mini Cog Score: Score: 5 Cognitive screening reviewed and no further action needed (score 3-5) Functional Observation Was the patient's timed Up AND Go test unsteady or ? 12 seconds? No Advance Care Planning End of Life planning discussed, including patient's advanced directive wishes: No Measurements BP 136/68 Pulse 66 Resp 16 Ht 5' 10 (1.78m) Wt 160 lb (72.6kg) SpO2 99% BMI 22.96 kg/(m2). Visual acuity (required for Welcome to Medicare): follows with optometry/ophthalmology, just saw optometry in [place], wears glasses. Hearing Evaluation: hard of hearing and tinnitus. Discussed seeing Delfina ENT REVIEW OF SYSTEMS GENERAL: No weight loss, malaise or fevers HEENT: Negative for frequent or significant headaches, No changes in hearing or vision, no nose bleeds or other nasal problems RESPIRATORY: Negative for cough, hemoptysis, wheezing, COPD, dyspnea or shortness of breath CARDIOVASCULAR: Negative for chest pain, leg swelling, hypertension, CHF or palpitations GI: No nausea, vomiting, or diarrhea : No history of dysuria, frequency or incontinence SKIN: Negative for lesions, rash, and itching PHYSICAL EXAM: GEN: pleasant, no acute distress, alert HEENT: PERRL, EOMI, MMM NECK: supple, no lymphadenopathy, no thyromegaly HEART: regular rate, regular rhythm, no murmurs LUNGS: clear to auscultation, no wheezes or crackles, no increased WOB ABD: soft, non-distended, no masses palpated, non-tender EXT: no clubbing, no cyanosis, no edema Assessment/Plan - Counseled on healthy diet and regular exercise - Vaccines recommended Shingrix at pharmacy and Tdap at pharmacy - Ultrasound screening for AAA - Lipid panel Rober Sue MD [facility] 11-20-2022 History of Presen t illness Narrative Татьяна Solis is a 72 year old male here for a Medicare Subsequent Annual Wellness Visit Health Risk Assessment In general, health is: Very good Concerns with balance:Not at all Concerns with teeth or dentures:Not at all Concerns with sexual function:Not at all [place] anxious, stressed, angry, irritable, lonely, isolated, or had thoughts of hurting themself: Not at all Has little interest or pleasure in doing things: Not at all Bothered by feeling down, depressed, or hopeless: Not at all Needs help with grocery shopping, cooking, housework, bathing, grooming, dressing, eating, sitting or standing, walking, using the toilet, handling finances, taking medications, using the telephone, or driving: No Following safety precautions in the home environment and vehicle: removed throw rugs from floors, installed grab bars in the bathroom, handrails in stairwells, having adequate lighting, wearing seatbelt at all times?: No Smokes cigarettes, vapes, or chew tobacco: No Eats healthy foods including fruits, vegetables, whole grains, and fiber-rich foods: Nearly every day Number of days per week engages in exercise: 6 days Average alcohol consumption: Monthly or less Current Providers Specialists: I have reviewed specialist-related care of the patient in the medical record. Outside specialists seen: Dr Mcelroy, urology and Dr Newton, nephrology Medical/Family history review Reviewed and updated problem list, medical history, surgical history, family history, social history, medication list, and allergies. Opioid use review Patient is currently using opioids. Depression screening Depression Screening PHQ-2 Score 11/20/2022 0 Depression screening tool completed and reviewed. Based on score and interview, patient is not at risk for depression. Screening tool discussed with patient, and I recommended no further intervention at this time. Cognitive screening Mini Cog Score: Score: 5 Cognitive screening reviewed and no further action needed (score 3-5) Functional Observation Was the patient's timed Up & Go test unsteady or ? 12 seconds? No Advance Care Planning End of Life planning discussed, including patient's advanced directive wishes: No Measurements BP 136/68 Pulse 66 Resp 16 Ht 5' 10 (1.78m) Wt 160 lb (72.6kg) SpO2 99% BMI 22.96 kg/(m^2). Visual acuity (required for Welcome to Medicare): follows with optometry/ophthalmology, just saw optometry in [place], wears glasses. Hearing Evaluation: hard of hearing and tinnitus. Discussed seeing Delfina ENT REVIEW OF SYSTEMS GENERAL: No weight loss, malaise or fevers HEENT: Negative for frequent or significant headaches, No changes in hearing or vision, no nose bleeds or other nasal problems RESPIRATORY: Negative for cough, hemoptysis, wheezing, COPD, dyspnea or shortness of breath CARDIOVASCULAR: Negative for chest pain, leg swelling, hypertension, CHF or palpitations GI: No nausea, vomiting, or diarrhea : No history of dysuria, frequency or incontinence SKIN: Negative for lesions, rash, and itching PHYSICAL EXAM: GEN: pleasant, no acute distress, alert HEENT: PERRL, EOMI, MMM NECK: supple, no lymphadenopathy, no thyromegaly HEART: regular rate, regular rhythm, no murmurs LUNGS: clear to auscultation, no wheezes or crackles, no increased WOB ABD: soft, non-distended, no masses palpated, non-tender EXT: no clubbing, no cyanosis, no edema Assessment/Plan - Counseled on healthy diet and regular exercise - Vaccines recommended Shingrix at pharmacy and Tdap at pharmacy - Ultrasound screening for AAA - Lipid panel Rober Sue MD documented in this encounter [facility] 03-19-2022 Note Patient Outreach (NE TNAV) ТАТЬЯНА SOLIS ([id number]) 1950 M Date Time Provider Department 03/19/22 PATRICIA SHEFFIELD During your visit today, we recorded the following information about you: Patricia Sheffield Population Health Navigator 03/19/2022 11:10 AM Signed POPULATION HEALTH NAVIGATION OUTREACH Action/FYI Left voicemail to schedule Medicare Wellness. HCC: I77.89 - Enlarged aorta Pt identified by name and : NO Outreach Outcome/Action Unable to reach patient: Left message Did you use a PCP flex slot to schedule this appointment? N/A Reason for Outreach HCC or suspected condition Payer: Payor: UHC AARP MEDICARE / Plan: UHC AARP MEDICARE HMO / Product Type: HMO / Care Gap Reviewed:: Annual Wellness visit Flu vaccine Reminder: Reminder note to check Health Maintenance for items below Health Maintenance items due: SHINGRIX VACCINE(1 of 2) Never done DTAP,TDAP,TD(2 - Td or Tdap) due on 12/05/2018 COVID-19 VACCINE(3 - Booster for Pfizer series) due on 01/08/2021 ADVANCE DIRECTIVE DISCUSSION Never done DEPRESSION ASSESSMENT Never done INFLUENZA(1) due on 01/17/2022 Message Sent to Practice: No Navigation Signature: Patricia Sheffield Population Health Navigator March 19, 2022 11:09 AM Allergies As of Date: 03/19/2022 (No Known Allergies) Date Reviewed: 05/17/2021 Reviewed by: Libby He APRN.RENTAL CLERK - Fully Assessed Reason for Visit: Population Health Navigation Outreach [3910] Cmt: [facility] Prescriptions as of 03/19/2022 - meloxicam (MOBIC) 15 mg tablet Take 1 tablet by mouth once daily. Meds Comments as of 09/09/2008: No current home medications. Sonja Butler Lpn Problem List As Of Date 03/19/2022 Noted Resolved SEBACEOUS CYST [L72.3] 09/05/2008 Inguinal hernia without mention of obstruction *12/05/2008 02/01/2013 CALCULUS OF KIDNEY [N20.0] 12/05/2008 Lumbago [M54.50] 03/23/2009 Enlarged aorta (HCC) [I77.89] 07/24/2020 Encounter Status:Closed by YOHANNES POPULATION HEALTH NAVIGATOR, PATRICIA Rivero on 03/19/22 [facility] 03-19-2022 Note HNO ID: [id number] Author: Patricia Sheffield Population Health Navigdarryl Service: ? Author Type: ? Type: Progress Notes Filed: 03/19/2022 11:10 AM Note Text: POPULATION HEALTH NAVIGATION OUTREACH Action/FYI Left voicemail to schedule Medicare Wellness. HCC: I77.89 - Enlarged aorta Pt identified by name and : NO Outreach Outcome/Action Unable to reach patient: Left message Did you use a PCP flex slot to schedule this appointment? N/A Reason for Outreach HCC or suspected condition Payer: Payor: [facility] MEDICARE / Plan: UHC AARP MEDICARE HMO / Product Type: HMO / Care Gap Reviewed:: Annual Wellness visit Flu vaccine Reminder: Reminder note to check Health Maintenance for items below Health Maintenance items due: SHINGRIX VACCINE(1 of 2) Never done DTAP,TDAP,TD(2 - Td or Tdap) due on 12/05/2018 COVID-19 VACCINE(3 - Booster for Pfizer series) due on 01/08/2021 ADVANCE DIRECTIVE DISCUSSION Never done DEPRESSION ASSESSMENT Never done INFLUENZA(1) due on 01/17/2022 Message Sent to Practice: No Navigation Signature: Patricia Sheffield Population Health Navigator March 19, 2022 11:09 AM [facility] 03-19-2022 History of Presen t illness Narrative POPULATION HEALTH NAVIGATION OUTREACH Action/FYI Left voicemail to schedule Medicare Wellness. HCC: I77.89 - Enlarged aorta Pt identified by name and : NO Outreach Outcome/Action Unable to reach patient: Left message Did you use a PCP flex slot to schedule this appointment? N/A Reason for Outreach HCC or suspected condition Payer: Payor: [facility] MEDICARE / Plan: UHC AARP MEDICARE HMO / Product Type: HMO / Care Gap Reviewed:: Annual Wellness visit Flu vaccine Reminder: Reminder note to check Health Maintenance for items below Health Maintenance items due: SHINGRIX VACCINE(1 of 2) Never done DTAP,TDAP,TD(2 - Td or Tdap) due on 12/05/2018 COVID-19 VACCINE(3 - Booster for Pfizer series) due on 01/08/2021 ADVANCE DIRECTIVE DISCUSSION Never done DEPRESSION ASSESSMENT Never done INFLUENZA(1) due on 01/17/2022 Message Sent to Practice: No Navigation Signature: Patricia Sheffield Population Health Navigator March 19, 2022 11:09 AM documented in this encounter [facility] 11-28-2021 Note Patient Outreach (NE TNAV) ТАТЬЯНА SOLIS ([id number]) 1950 Date Time Provider Department 11/28/21 LILIBETH OLMOS During your visit today, we recorded the following information about you: Lilibeth Olmos MA 11/28/2021 9:41 AM Signed POPULATION HEALTH NAVIGATION OUTREACH Action/FYI Left message on patient's voice mail to return my call. Patient is on [facility] for the following HM care gaps: Schedule wellness exam ADVANCE DIRECTIVE DISCUSSION MyChart Pt identified by name and : NO Outreach Outcome/Action Unable to reach patient: Left message Did you use a PCP flex slot to schedule this appointment? N/A Reason for Outreach Care Gap or Scheduling/Wellness visits Payer: Payor: [facility] MEDICARE / Plan: [facility] MEDICARE HMO / Product Type: HMO / Care Gap Reviewed:: Annual Wellness visit Reminder: Reminder note to check Health Maintenance for items below Health Maintenance items due: SHINGRIX VACCINE(1 of 2) Never done DTAP,TDAP,TD(2 - Td or Tdap) due on 12/05/2018 DEPRESSION SCREENING due on 03/30/2019 COVID-19 VACCINE(3 - Booster for Pfizer series) due on 04/15/2021 ADVANCE DIRECTIVE DISCUSSION Never done Message Sent to Practice: No Navigation Signature: Lilibeth Olmos MA November 28, 2021 7:40 AM Allergies As of Date: 11/28/2021 (No Known Allergies) Date Reviewed: 05/17/2021 Reviewed by: Libby He APRN.RENTAL CLERK - Fully Assessed Reason for Visit: Population Health Navigation Outreach [3910] Cmt: [facility] Care Gaps Prescriptions as of 11/28/2021 - meloxicam (MOBIC) 15 mg tablet Take 1 tablet by mouth once daily. Meds Comments as of 09/09/2008: No current home medications. Sonja Butler Air Conditioning Unit Assembler Problem List As Of Date 11/28/2021 Noted Resolved SEBACEOUS CYST [L72.3] 09/05/2008 Inguinal hernia without mention of obstruction *12/05/2008 02/01/2013 CALCULUS OF KIDNEY [N20.0] 12/05/2008 Lumbago [M54.50] 03/23/2009 Enlarged aorta (HCC) [I77.89] 07/24/2020 Encounter Status:Closed by LILIBETH OLMOS on 11/28/21 [facility] 11-28-2021 Note HNO ID: [id number] Author: Lilibeth Olmos MA Service: ? Author Type: Circuit Breaker Supervisor Type: Progress Notes Filed: 11/28/2021 9:41 AM Note Text: POPULATION HEALTH NAVIGATION OUTREACH Action/FYI Left message on patient's voice mail to return my call. Patient is on [facility] for the following HM care gaps: Schedule wellness exam ADVANCE DIRECTIVE DISCUSSION MyChart Pt identified by name and : NO Outreach Outcome/Action Unable to reach patient: Left message Did you use a PCP flex slot to schedule this appointment? N/A Reason for Outreach Care Gap or Scheduling/Wellness visits Payer: Payor: [facility] MEDICARE / Plan: [facility] MEDICARE HMO / Product Type: HMO / Care Gap Reviewed:: Annual Wellness visit Reminder: Reminder note to check Health Maintenance for items below Health Maintenance items due: SHINGRIX VACCINE(1 of 2) Never done DTAP,TDAP,TD(2 - Td or Tdap) due on 12/05/2018 DEPRESSION SCREENING due on 03/30/2019 COVID-19 VACCINE(3 - Booster for Pfizer series) due on 04/15/2021 ADVANCE DIRECTIVE DISCUSSION Never done Message Sent to Practice: No Navigation Signature: Lilibeth Olmos MA November 28, 2021 7:40 AM [facility] 11-28-2021 History of Presen t illness Narrative POPULATION HEALTH NAVIGATION OUTREACH Action/FYI Left message on patient's voice mail to return my call. Patient is on [facility] for the following HM care gaps: Schedule wellness exam ADVANCE DIRECTIVE DISCUSSION MyChart Pt identified by name and : NO Outreach Outcome/Action Unable to reach patient: Left message Did you use a PCP flex slot to schedule this appointment? N/A Reason for Outreach Care Gap or Scheduling/Wellness visits Payer: Payor: [facility] MEDICARE / Plan: [employer] AARP MEDICARE HMO / Product Type: HMO / Care Gap Reviewed:: Annual Wellness visit Reminder: Reminder note to check Health Maintenance for items below Health Maintenance items due: SHINGRIX VACCINE(1 of 2) Never done DTAP,TDAP,TD(2 - Td or Tdap) due on 12/05/2018 DEPRESSION SCREENING due on 03/30/2019 COVID-19 VACCINE(3 - Booster for Pfizer series) due on 04/15/2021 ADVANCE DIRECTIVE DISCUSSION Never done Message Sent to Practice: No Navigation Signature: Lilibeth Olmos MA November 28, 2021 7:40 AM documented in this encounter [facility] documented as of this encounter (statuses as of 11/28/2021) [facility]07-20-2009 History of Past illness Narrative* Problem Noted Date Resolved Date Inguinal hernia without ment ion of obstruction or gangrene, unilateral or unspecified, (not specified as recurrent) 12/05/2008 02/01/2013 documented as of this encounter (statuses as of 03/19/2022) [facility] History of Past illness Narrative* Problem Noted Date Resolved Date Inguinal hernia without ment ion of obstruction or gangrene, unilateral or unspecified, (not specified as recurrent) 12/05/2008 02/01/2013 documented as of this encounter (statuses as of 11/20/2022) [facility] History of Past illness Narrative* Problem Noted Date Resolved Date Inguinal hernia without ment ion of obstruction or gangrene, unilateral or unspecified, (not specified as recurrent) 12/05/2008 02/01/2013 documented as of this encounter (statuses as of 11/22/2022) [address]20-2009 History of Past illness Narrative* Problem Noted Date Resolved Date Inguinal hernia without ment ion of obstruction or gangrene, unilateral or unspecified, (not specified as recurrent) 12/05/2008 02/01/2013 documented as of this encounter (statuses as of 11/22/2022) [address]20-2009 History of Past illness Narrative* Problem Noted Date Diagnosed Date Resolved Date Inguinal hernia without ment ion of obstruction or gangrene, unilateral or unspecified, (not specified as recurrent) 12/05/2008 02/01/2013 documented as of this encounter (statuses as of 11/25/2022) [address]20-2009 History of Past illness Narrative* Problem Noted Date Diagnosed Date Resolved Date Inguinal hernia without ment ion of obstruction or gangrene, unilateral or unspecified, (not specified as recurrent) 12/05/2008 02/01/2013 documented as of this encounter (statuses as of 03/23/2023) [facility] Diagnosis Encounter for Medicare annual wellness exam- Primary Routine general medical examination at a health care facility Stage 3b chronic kidney disease (HCC) Benign prostatic hyperplasia without lower urinary tract symptoms Screening for lipid disorders Enlarged aorta (HCC) Other specified disorders of arteries and arterioles [facility] this [facility] Diagnosis Screening for AAA (abdominal aortic aneurysm)- Primary Screening for other and unspecified cardiovascular conditions documented in this encounter [facility]* Diagnosis Screening for AAA (abdominal aortic aneurysm) Screening for other and unspecified cardiovascular conditions documented in this encounter [facility] for referral (narrative)* Diagnostic Procedure Only (Routine) - Authorized Specialty Diagnoses / Procedures Referred By Contac t Referred To Contact US IMAGING Diagnoses Enlarged aorta (HCC) Procedures US SCREENING FOR AAA (2017) US ABDOMINAL AORTA REAL TIME SCREEN STUDY AAA Rober Sue MD [address] [place] [address] [facility] Referral ID Status Reason Start Date Expiration Date Visits Requested Visits Authorized [id number] Authorized Auto-Generat ed Referral 11/20/2022 12/20/2023 1 1 [facility] for referral (narrative)* Diagnostic Procedure Only (Routine) - Closed Specialty Diagnoses / Procedures Referred By Contac t Referred To Contact US IMAGING Diagnoses Screening for AAA (abdominal aortic aneurysm) Procedures US DOPPLER AORTA DUP-SCAN ARTL URBANO ABDL/PEL/SCROT&/RPR ORGN LMT Rober Sue MD [address] [place] [address] [facility] Referral ID Status Reason Start Date Expiration Date V isits Requested Visits Authorized [id number] Closed Auto-Generate d Referral 11/20/2022 12/20/2023 1 1 * Diagnostic Procedure Only (Routine) - Closed Specialty Diagnoses / Procedures Referred By Contac t Referred To Contact US IMAGING Diagnoses Screening for AAA (abdominal aortic aneurysm) Procedures US ABD AORTA US RETROPERITONEAL REAL TIME W/IMAGE LIMITED Rober Sue MD [address] [place] [address] [facility] Referral ID Status Reason Start Date Expiration Date V isits Requested Visits Authorized [id number] Closed Auto-Generate d Referral 11/20/2022 12/20/2023 1 1 [facility] for referral (narrative)* Diagnostic Procedure Only (Routine) - Closed Specialty Diagnoses / Procedures Referred By Contac t Referred To Contact US IMAGING Diagnoses Screening for AAA (abdominal aortic aneurysm) Procedures US DOPPLER AORTA DUP-SCAN ARTL URBANO ABDL/PEL/SCROT&/RPR ORGN T Rober Sue MD [address] [place] [address] [place] [address] Referral ID Status Reason Start Date Expiration Date V isits Requested Visits Authorized [id number] Closed Auto-Generate d Referral 11/20/2022 12/20/2023 1 1 * Diagnostic Procedure Only (Routine) - Closed Specialty Diagnoses / Procedures Referred By Contac t Referred To Contact US IMAGING Diagnoses Screening for AAA (abdominal aortic aneurysm) Procedures US ABD AORTA US RETROPERITONEAL REAL TIME W/IMAGE LIMITED Rober Sue MD [address] [facility] [place] [address] [place] [address] Referral ID Status Reason Start Date Expiration Date V isits Requested Visits Authorized [id number] Closed Auto-Generate d Referral 11/20/2022 12/20/2023 1 1 [facility] Advance Directives Documents on File Type Date Recorded 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 Advance Directive(s) 06/11/2017 6:30 AM Summary Purpose Family History No Family History Records Found Additional Source Comments Source Comments (unrecognize d section and content) In the event this informatio n is protected by the Federal Confidentiality of Alcohol and Drug Abuse Patient Records regulations: The Federal rules restrict any use of the information to criminally investigate or prosecute any alcohol or drug abuse patient.[facility] the event this information is protected by the Federal Confidentiality of Alcohol and Drug Abuse Patient Records regulations: The Federal rules restrict any use of the information to criminally investigate or prosecute any alcohol or drug abuse patient.[facility] the event this information is protected by the Federal Confidentiality of Alcohol and Drug Abuse Patient Records regulations: The Federal rules restrict any use of the information to criminally investigate or prosecute any alcohol or drug abuse patient.[facility] the event this information is protected by the Federal Confidentiality of Alcohol and Drug Abuse Patient Records regulations: The Federal rules restrict any use of the information to criminally investigate or prosecute any alcohol or drug abuse patient.[facility] the event this information is protected by the Federal Confidentiality of Alcohol and Drug Abuse Patient Records regulations: The Federal rules restrict any use of the information to criminally investigate or prosecute any alcohol or drug abuse patient.[facility] the event this information is protected by the Federal Confidentiality of Alcohol and Drug Abuse Patient Records regulations: The Federal rules restrict any use of the information to criminally investigate or prosecute any alcohol or drug abuse patient.[facility] the event this information is protected by the Federal Confidentiality of Alcohol and Drug Abuse Patient Records regulations: The Federal rules restrict any use of the information to criminally investigate or prosecute any alcohol or drug abuse patient.[facility] Reason for Visit (unrecogniz ed section and content) Reason Onset Date Comments Population Health Navigation Outreach 03/19/2022 HCC Reason Comments Physical Requesting tetanus Reason Comments Results Reason Comments Erroneous encounter-disregard Reason Comments Radiology US Specialty Diagnoses / Procedures Referred By Contac t Referred To Contact US IMAGING Diagnoses Screening for AAA (abdominal aortic aneurysm) Procedures US ABD AORTA US RETROPERITONEAL REAL TIME W/IMAGE LIMITED Rober Sue MD [address] [place] [id number] [place] [address] Referral ID Status Reason Start Date Expiration Date V isits Requested Visits Authorized [id number] Closed Auto-Generate d Referral 11/20/2022 12/20/2023 1 1 Care Teams (unrecognized sec tion and content) Director [employer] Relationship Specialty Start Date End Date Rober Sue MD [address] [place] [address] [id number] PCP - General Family Medicine 06/05/15 Director [employer] Relationship Specialty Start Date End Date Rober Sue MD [address] [place] [address] [phone] PCP - General Family Medicine 06/05/15 Director [employer] Relationship Specialty Start Date End Date Rober Sue MD [address] [place] [address] [phone] PCP - General Family Medicine 06/05/15 Director [employer] Relationship Specialty Start Date End Date Rober Sue MD [address] [place] [address] [phone] PCP - General Family Medicine 06/05/15 Director [employer] Relationship Specialty Start Date End Date Rober Sue MD [address] [place], [place] [phone] PCP - General [facility] 06/05/15 Director [employer] Relationship Specialty Start Date End Date Rober Sue MD [address] [place], [place] [phone] PCP - General [facility] 06/05/15 (unrecognized sect ion and content) No Status Records Found INFORMATION SOURCE (unrecogn ized section and content) FOR RECORDS PERTAINING TO PATIENTS WHO ARE OR HAVE BEEN ENROLLED IN A CHEMICAL DEPENDENCY/SUBSTANCEABUSE PROGRAM, SOME INFORMATION MAY BE OMITTED. This clinical summary was aggregated from multiple sources. Caution should be exercised in using it in the provision of clinical care. This summary normalizes information from multiple sources, and as a consequence, information in this document may materially change the coding, format and clinical context of patient data. In addition, data may be omitted in some cases. CLINICAL DECISIONS SHOULD BE BASED ON THE PRIMARY CLINICAL RECORDS. [employer] [facility]. provides no warranty or guarantee of the accuracy or completeness of information in this document.
[2023-06-30 12:10] LABS: Albumin, Serum 3.7 g/dL (3.2-5.0); BUN 26 mg/dL (7-18); BUN/Creat Ratio 17.3 RATIO (10-20); Calcium,Total 9.2 mg/dL (8.5-10.1); Chloride 109 mmol/L (98-107); EST Glomerular Filtration Rate 49 mL/min (>60); Est Glom Filt Rate - Afr Amer 59 mL/min (>60); Glucose 100 mg/dL (74-106); Phosphorus 2.5 mg/dL (2.5-4.9); Potassium 3.9 mmol/L (3.5-5.1); Sodium Level 141 mmol/L (136-145)
== END | disposition home or self-care (01) ==
LOC: LAB 10:23
PROVIDERS: PCP Family Medicine; Visit Provider Internal Medicine Nephrology
DX: N18.32 Chronic kidney disease, stage 3b (principal)
CPT/HCPCS: 36415; 80069

== ENCOUNTER → 2023-11-17 | Outpatient (CLI) | payer MEDICARE, SELFPAY ==
[2023-11-17 09:30] LABS: PSA,Total - Annual Screen 1.14 ng/mL (0.00-4.00)
== END | disposition home or self-care (01) ==
LOC: LAB 08:31
PROVIDERS: PCP Family Medicine; Referring Provider Urology; Visit Provider Urology
DX: Z12.5 Encounter for screening for malignant neoplasm of prostate (principal)
CPT/HCPCS: 36415; 84153; G0103

== ENCOUNTER → 2024-11-18 | Outpatient (CLI) | payer MEDICARE, SELFPAY ==
[2024-11-18 12:03] LABS: PSA,Total - Annual Screen 0.88 ng/mL (0.02-4.00)
== END | disposition home or self-care (01) ==
LOC: LAB 10:21
PROVIDERS: PCP Family Medicine; Referring Provider Nurse Practitioner; Visit Provider Nurse Practitioner
DX: Z12.5 Encounter for screening for malignant neoplasm of prostate (principal)
CPT/HCPCS: 36415; 84153; G0103